=== PATIENT | male | born 1965 | race Caucasian/White ===

== ENCOUNTER 2024-11-17 20:46 | Inpatient (IN) | payer OTHER ==
[~2024-11-17] VITALS: Ht 180.3 cm; Wt 102.7 kg
[2024-11-17 21:29] LABS: Basophils # (auto) 0.1 10 ^3/uL (0-0.2); Eosinophils # (auto) 0 10 ^3/uL (0-0.8); Hemoglobin 9.2 g/dL (13.5-17.5); Mean Corpuscular Volume 63.4 fL (80.0-100.0); Monocytes # (auto) 1.4 10 ^3/uL (0-1.3)
[2024-11-17 21:30] LABS: Basophils % (auto) 0.6 % (0.0-2.0); Eosinophils % (auto) 0.1 % (0.0-7.0); Hematocrit 29.8 % (41.0-53.0); Mean Corpuscular Hemoglobin 19.5 pg (28.0-32.0); Mean Corpuscular Hgb Conc. 30.7 g/dL (32.0-36.0); Monocytes % (auto) 10.5 % (0.0-12.0); Neutrophils # (auto) 10.5 10 ^3/uL (1.6-8.6); Neutrophils % (auto) 80.8 % (37.0-80.0); Platelet Count (auto) 425 10^3/uL (140-450)
[2024-11-17 21:32] LABS: Red Cell Distribution Width 24.9 % (11.8-14.3)
[2024-11-17 21:46] LABS: Alanine Aminotransferase 9 U/L (7-40); Albumin 4.1 g/dL (3.2-4.8); Alkaline Phosphatase 83 U/L (46-116); Anion Gap 9 (5-15); Aspartate Aminotransferase 16 U/L (13-40); BUN/Creatinine Ratio 21.2 (10.0-20.0); Bilirubin, Total 1.1 mg/dL (0.2-1.0); Blood Urea Nitrogen 44 mg/dL (9-23); Calcium 9.1 mg/dL (8.7-10.4); Carbon Dioxide 25 mmol/L (20-31); Chloride 100 mmol/L (98-107); Glucose 117 mg/dL (74-106); Lipase 28 U/L (12-53); Potassium 3.4 mmol/L (3.5-5.1); Sodium 134 mmol/L (136-145); Total Protein 7.3 g/dL (5.7-8.2)
--- NOTE | 2024-11-17 21:53 | ED.PDOC ---
GI ASSESSMENT HPI Comments 59 year old male presents to the ED with a chief complaint of abdominal pain onset 1 day. PMHx HTN, DM, Diverticulitis. Patient states he was diagnosed with Diverticulitis May 2024, has an appointment for colonoscopy on 11/25/24. He began experiencing RLQ for the past day, experienced a few episodes of nausea/vomiting 2 days ago, now resolved. Denies chest pain, shortness of breath, dizziness, headache, hematemesis, blood in stool, fevers, chills. No other symptoms or modifying factors present at this time. Time Seen by MD: 21:30 Primary Care Provider: jordyn Reviewed Notes: Medications, Allergies Allergies: Coded Allergies: NO KNOWN ALLERGIES (Unverified , 08/26/15) Information Source: Patient Mode of Arrival: Ambulatory Timing: Days Duration: Since onset Prehospital treatment: None Quality: Sharp Vomitus: None Severity: Moderate Recent: None Recent Hx of: None Pain Location: RLQ Modifying Factors: Nothing Associated sign and symptoms: Nausea, Vomiting, Abdominal Pain Past Medical History PAST MEDICAL HISTORY: DM, HTN Past Medical History (Other): diverticulitis Surgical History: Denies all surgeries Family History Family History: Unknown Social History Smoker: Non-Smoker Alcohol: Denies ETOH Use Drugs: Denies Drug Use Lives In: Home Constitutional: denies: chills, diaphoresis, fatigue, fever, malaise, sweats, weakness, others EENTM: denies: blurred vision, double vision, ear bleeding, ear discharge, ear drainage, ear pain, ear ringing, eye pain, eye redness, hearing loss, mouth pain, mouth swelling, nasal discharge, nose bleeding, nose congestion, nose pain, photophobia, tearing, throat pain, throat swelling, voice changes, others Respiratory: denies: cough, hemoptysis, orthopnea, SOB at rest, shortness of breath, SOB with excertion, stridor, wheezing, others Cardiovascular: denies: chest pain, dizzy spells, diaphoresis, Dyspnea on exertion, edema, irregular heart beat, left arm pain, lightheadedness, palpitations, PND, syncope, others Gastrointestinal: reports: abdominal pain; denies: abdomen distended, blood streaked bowels, constipated, diarrhea, dysphagia, difficulty swallowing, hematemesis, melena, nausea, poor appetite, poor fluid intake, rectal bleeding, rectal pain, vomiting, others Genitourinary: denies: burning, dysuria, flank pain, frequency, hematuria, incontinence, penile discharge, penile sore, pain, testicle pain, testicle swelling, urgency, others Neurological: denies: dizziness, fainting, headache, left sided numbness, left sided weakness, numbness, paresthesia, pre-existing deficit, right sided numbness, right sided weakness, seizure, speech problems, tingling, tremors, w eakness, others Musculoskeletal: denies: back pain, gout, joint pain, joint swelling, muscle pain, muscle stiffness, neck pain, others Integumetry: denies: bruises, change in color, change in hair/nails, dryness, laceration, lesions, lumps, rash, wounds, others Allergic/Immunocompromised: denies: Difficulty Healing, Frequent Infections, Hives, Itching, others Hematologic/Lymphatic: denies: anemia, blood clots, easy bleeding, easy bruising, swollen glands, others Endocrine: denies: excessive hunger, excessive sweating, excessive thirst, excessive urination, flushing, intolerance to cold, intolerance to heat, unexplained weight gain, unexplained weight loss, others Psychiatric: denies: anxiety, bipolar disorder, depression, hopeless, panic disorder, schizophrenia, sleepless, suicidal, others All Other Systems: Reviewed and Negative Physical Exam General Appearance: No Apparent Distress, Normal HEENT: Normal ENT Inspection, Pharynx Normal, TMs Normal Neck: Full Range of Motion, Non-Tender, Normal, Normal Inspection Respiratory: Chest Non-Tender, Lungs Clear, No Accessory Muscle Use, No Respiratory Distress, Normal Breath Sounds Cardiovascular: No Edema, No JVD, No Murmur, No Gallop, Normal Peripheral Pulses, Regular Rate/Rhythm Breast Exam: Deferred Gastrointestinal: No Organomegaly Genitalia: Deferred Pelvic: Deferred Rectal: Deferred Extremities: No calf tenderness, Normal capillary refill, Normal inspection, Normal range of motion, Non-tender, No pedal edema Musculoskeletal : Apperance: Normal Neurologic: Alert, transfer professor II-XII nml as Tested, No Motor Deficits, Normal Affect, Normal Mood, No Sensory Deficits Cerebellar Function: Normal Reflexes: Normal Skin: Dry, Normal Color, Warm Lymphatic: No Adenopathy Was a procedure done? Was a procedure done?: No GI differential Dx Differential Diagnosis: AAA, Appendicitis, Aortic dissection, Cholangitis, Cholecystitis, Diverticular disease, Gastritis/PUD, Gastroenteritis, GI h emorrhage, Ischemic Bowel, Other X-Ray, Labs, Meds, VS Vital Signs Date Time Temp Pulse Resp B/P (MAP) Pulse Ox O2 Delivery O2 Flow Rate FiO2 11/17/24 22:15 98.5 95 16 119/57 (77) 74 98.5 Lab Test 11/17/24 22:20 11/17/24 21:16 Range/Units Urine Color Light-yellow Yellow Urine Clarity Clear Clear Urine pH 5.5 5.0-9.0 Urine Specific Vincent 1.018 1.001-1.035 Urine Protein Trace H Negative Urine Ketones Negative Negative Urine Blood Trace H Negative /uL Urine Nitrite Negative Negative Urine Bilirubin Negative Negative Urine Urobilinogen Normal Negative mg/dL Urine Leukocyte Esterase Negative Negative /uL Urine RBC <1 0 - 3 /hpf Urine Microscopic WBC 1 0-3 /HPF Urine Squamous Epithelial Cells None seen <5 /hpf Urine Bacteria None seen None Seen /hpf Urine Hyaline Casts Few 0 - 2 /lpf Urine Glucose Normal Normal mg/dL White Blood Count 13.0 H 4.4-10.8 10^3/uL Red Blood Count 4.70 4.5-5.90 10^6/uL Hemoglobin 9.2 L 13.5-17.5 g/dL Hematocrit 29.8 L 41.0-53.0 % Mean Corpuscular Volume 63.4 L 80.0-100.0 fL Mean Corpuscular Hemoglobin 19.5 L 28.0-32.0 pg Mean Corpuscular Hemoglobin Concent 30.7 L 32.0-36.0 g/dL Red Cell Distribution Width 24.9 H 11.8-14.3 % Platelet Count 425 140-450 10^3/uL Mean Platelet Volume 8.3 6.9-10.8 fL Neutrophils (%) (Auto) 80.8 H 37.0-80.0 % Lymphocytes (%) (Auto) 8.0 L 10.0-50.0 % Monocytes (%) (Auto) 10.5 0.0-12.0 % Eosinophils (%) (Auto) 0.1 0.0-7.0 % Basophils (%) (Auto) 0.6 0.0-2.0 % Neutrophils # (Auto) 10.5 H 1.6-8.6 10 ^3/uL Lymphocytes # (Auto) 1.0 0.4-5.4 10 ^3/uL Monocytes # (Auto) 1.4 H 0-1.3 10 ^3/uL Eosinophils # (Auto) 0 0-0.8 10 ^3/uL Basophils # (Auto) 0.1 0-0.2 10 ^3/uL Nucleated Red Blood Cells 0.0 % Platelet Estimate Adequate Hypochromasia (manual) Marked Anisocytosis (manual) Moderate Microcytosis Marked Ovalocytes Few Sodium Level 134 L 136-145 mmol/L Potassium Level 3.4 L 3.5-5.1 mmol/L Chloride Level 100 98-107 mmol/L Carbon Dioxide Level 25 20-31 mmol/L Anion Gap 9 5-15 Blood Urea Nitrogen 44 H 9-23 mg/dL Creatinine 2.08 H 0.700-1.30 mg/dL Glomerular Filtration Rate Calc 36 >90 mL/min BUN/Creatinine Ratio 21.2 H 10.0-20.0 Serum Glucose 117 H 74-106 mg/dL Calcium Level 9.1 8.7-10.4 mg/dL Total Bilirubin 1.1 H 0.2-1.0 mg/dL Aspartate Amino Transferase (AST) 16 13-40 U/L Alanine Aminotransferase (ALT) 9 7-40 U/L Alkaline Phosphatase 83 46-116 U/L Total Protein 7.3 5.7-8.2 g/dL Albumin 4.1 3.2-4.8 g/dL Lipase 28 12-53 U/L Time of 1ST Reevaluation: 22:00 Reevaluation 1ST: Unchanged Patient Education/Counseling: Diagnosis, Treatment, Prognosis Family Education/Counseling: No Family Present Departure 1 Departure Time of Disposition: 00:03 Impression: Primary Impression: Acute appendicitis Additional Impression: Acute renal injury Disposition: 01 HOME / SELF CARE / HOMELESS Condition: Stable Comments Right Lower Quadrant Abdominal Pain - Acute Appendicitis Chief Complaint: Right lower quadrant abdominal pain History of Present Illness: 59-year-old male presents with right lower quadrant abdominal pain for the past two days. Patient has relevant medical history of hypertension, diabetes, and prior diverticulitis. The pain is accompanied by tenderness in the right lower quadrant on examination. Laboratory studies reveal leukocytosis with left shift and evidence of acute kidney injury. Imaging confirms findings consistent with acute appendicitis. Review of Systems: Limited review of systems due to acute presentation. 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 Hypertension 2. Diabetes 3. Diverticulitis Physical Exam: Abdomen: Tenderness noted in right lower quadrant Lab Results: WBC: 13,000 with 81% neutrophils (left shift) Hemoglobin: 9.2 Hematocrit: 29.8 Sodium: 134 (borderline low) Potassium: 3.4 (borderline low) Creatinine: 2.08 (elevated) BUN: 44 (elevated) Urinalysis: Unremarkable Imaging and Other Relevant Results: CT Abdomen/Pelvis: - Dilated appendix measuring 1.7 cm with surrounding inflammation - Adjacent fat stranding - Wall thickening of ileum suggesting enteritis - Mesenteric lymph nodes in right lower quadrant Medical Decision Making: Summary Statement: 59-year-old male with history of hypertension, diabetes, and diverticulitis presenting with right lower quadrant pain, found to have acute appendicitis and acute kidney injury. Problem List: 1. Acute Appendicitis 2. Acute Kidney Injury 3. Anemia 4. Electrolyte Abnormalities Differential Diagnosis: 1. Acute Appendicitis 2. Diverticulitis 3. Mesenteric Adenitis 4. Ileitis 5. Inflammatory Bowel Disease ED Course: Patient received IV fluids, IV antibiotics, and Toradol for pain management. Given imaging findings consistent with appendicitis and laboratory abnormalities, decision made to admit for surgical evaluation and management of acute kidney injury. Assessment and Plan: 1. Acute Appendicitis: - Admit to hospital for surgical evaluation - Continue IV antibiotics - NPO status 2. Acute Kidney Injury: - Continue IV fluid hydration - Monitor urine output - Serial creatinine measurements 3. Electrolyte Abnormalities: - Monitor and replace electrolytes as needed 4. Anemia: - Monitor hemoglobin - Further workup during admission Billing Information: ICD-10: K35.80 - Unspecified acute appendicitis ICD-10: N17.9 - Acute kidney failure, unspecified ICD-10: D64.9 - Anemia, unspecified ICD-10: E87.8 - Other disorders of electrolyte and fluid balance Critical Care Note Critical Care Time?: Yes (35 min-critical care time only) Critical care comment: Total critical care time: Approximately 36 minutes Due to a high probability of clinically significant, life threatening deterioration, the patient required my highest level of preparedness to intervene emergently and I personally spent this critical care time directly and personally managing the patient. This critical care time included obtaining a history; examining the patient; pulse oximetry; ordering and review of studies; arranging urgent treatment with development of a management plan; evaluation of patient's response to treatment; frequent reassessment; and, discussions with other providers. This critical care time was performed to assess and manage the high probability of imminent, life-threatening deterioration that could result in multi-organ failure. It was exclusive of separately billable procedures and treating other patients. Stability Stability form required: No I personally scribed for CELENA MIRELES MD ([email or web address]) on 11/17/24 at 21:53. Electronically submitted by Nedra Reyes ([email or web address]). CELENA MIRELES MD Nov 17, 2024 21:53
[2024-11-17] MEDS: SODIUM CHLORIDE 0.9% 1,000 ML IVB ONE (22:00)
[2024-11-17] MEDS: KETOROLAC TROMETH 30 MG/ML 1ML VIAL IV ONE (22:00)
[2024-11-17 22:25] LABS: Urine Bacteria None Seen /hpf (None Seen)
[2024-11-17 22:28] LABS: Anisocytosis Moderate; Hypochromia Marked; Platelet Estimate Adequate
[2024-11-17 22:29] LABS: Ovalocytes FEW
[2024-11-17 22:30] LABS: Urine Blood TRACE /uL (Negative); Urine Clarity Clear (Clear); Urine Color Light-Yellow (Yellow); Urine Hyaline Cast FEW /lpf (0 - 2); Urine Protein, UAD TRACE (Negative); Urine Specific Gravity 1.018 (1.001-1.035); Urine Squamous Epithelial Cell None Seen /hpf (<5); Urine Urobilinogen Normal (Negative); Urine WBC 1 /HPF (0-3); Urine pH 5.5 (5.0-9.0)
--- NOTE | 2024-11-17 23:44 | DVH ---
Exam: CT CT AB PEL WO CON-NO ORAL OR IV History: RLQ PAIN Comparison Study: None Technique: Multidetector spiral CT of the abdomen was performed from lung bases to pubic symphysis. Imaging was performed without IV contrast. Axial, coronal and sagittal multiplanar reformats were ob tained from the axial data set by the technologist. Radiation Dose : 1. Abdomen/Pelvis: CTDIvol 18.3 mGy, DLP 1044 mGy*cm. Findings: Evaluation of solid organs is limited due to lack of intravenous contrast use. Lung Bases: Chronic scarring is seen in the left lower lobe No acute or significant lung base finding . Normal heart size. No pleural or pericardial effusion. Liver: The liver is normal in size. No focal lesions. Gallbladder and Biliary Tree: Unremarkable Spleen: Unremarkable Pancreas: The pancreas is grossly normal in appearance. Adrenal Glands: Unremarkable Kidneys: Kidneys are grossly normal without calculi or hydronephrosis. Bladder: Grossly unremarkable for degree of distention. Bowel: The stomach is grossly normal in appearance. Concentric wall thickening of the ileum is sugge stive of infectious/inflammatory enteritis. Abnormally dilated appendix measuring up to 1.7 cm in di ameter with adjacent fat stranding, suspicious for acute appendicitis. Scattered colonic diverticulos is without evidence of diverticulitis. Ascites: Absent Lymphadenopathy: Multiple large mesenteric lymph nodes are seen in the right lower quadrant, the larg est measuring up to 3 cm in length. Abdominal Wall and Mesentery: Unremarkable. Vasculature: The visualized abdominal aorta is normal in size and caliber. Evaluation of abdominal a nd pelvic vessels is limited due to lack of intravenous contrast. Pelvic Organs: Unremarkable Musculoskeletal: No aggressive focal bony lesions, acute fractures or dislocation. IMPRESSION: 1. Abnormally dilated appendix measuring up to 1.7 cm in diameter with adjacent fat stranding, suspic ious for acute appendicitis. 2. Concentric wall thickening of the ileum is suggestive of infectious/inflammatory enteritis. 3. Multiple large mesenteric lymph nodes are seen in the right lower quadrant, the largest measuring up to 3 cm in length. Radiation optimization: All CT scans at this facility use at least one of these dose optimization liss hniques: automated exposure control mA and/or kV adjustment per patient size (includes targeted exam s where dose is matched to clinical indication) or iterative reconstruction.
[2024-11-18] VITALS (20 sets, daily range): BP systolic 100–129; BP diastolic 50–69; PULSE 67–87; RESP 14–24; TEMP 97.9–99.3; O2SAT 93–97
[2024-11-18] MEDS ORDERED: ONDANSETRON HCL 4 MG/2 ML VIAL IV PRN ×2 (00:45→14:30)
[2024-11-18] MEDS: PIPERACILLIN-TAZOB 3.375GM 100 ML IV ONE (02:21)
[2024-11-18] MEDS: ONDANSETRON HCL 4 MG/2 ML VIAL IV ONE ×2 (02:22→17:00)
[2024-11-18] MEDS: POTASSIUM CHL 20MEQ/100ML 100 ML IV SCH (03:05)
--- NOTE | 2024-11-18 05:11 | DVHHPRES ---
History of Present Illness Resident Creating Document: JHAJNELL McmanusMARIEL RESIDENT History of Present Illness Patient is a 59-year-old male with a past medical history of hypertension, dyslipidemia presented to the ER with a chief complaint of right lower quadrant abdominal pain that started yesterday. He reports that last year in February he had left lower quadrant pain following which she went to his PCP who prescribed antibiotics and told him it was likely diverticulitis, he took antibiotics for about 2 weeks and the pain improved slightly but he has continued to have discomfort in the left lower quadrant on and off sometimes worsened with certain foods like chicken and meat. About 2 months ago he sta rted to have pain in the hypogastric region which was also on and off and he did not pay much attention. Patient reports all through this his bowel movements were regular and denied any constipation. Since the last 1 week patient was having discomfort in the right lower quadrant but yesterday it was very severe that yet to come to the hospital for further evaluation. He reported having 3-4 episode of loose watery greenish stools in the last 2 days, episode of vomiting on Friday but denied any blood in the vomitus or in the stool. Off note patient also reports that since 2015 up to 2023 he was taking ibuprofen daily twice and stop taking when he had pain in the epigastrium and symptoms of dyspepsia like currently satiety last year and he went to his PCP. Patient denies any other complaint of chest pain or shortness of breath. He denies any fever or chills. Past medical history: Prediabetic, hypertension, dyslipidemia Past surgical history: Left lung lobectomy apparently due to pneumonia in 2011 Social history: Patient is occasional cannabis user oral cannabis, denies smoking and alcohol and any other drug use Home medications: Metformin, metoprolol 50 b.i.d., losartan 100 mg, hydrochlorothiazide 25 mg, atorvastatin 20 mg Review of Systems Review of Systems Seen and examined at the bedside Reports of right lower quadrant pain Denies nausea, vomiting, fever or chills Allergies: Coded Allergies: NO KNOWN ALLERGIES (Unverified , 08/26/15) Medications Current Medications Medications Dose Ordered Sig/[place] Route Start Time Stop Time Status Last Admin Dose Admin Piperacillin Sod/ Tazobactam Sod 100 ml @ 25 mls/hr Q8HR IV 11/18/24 06:00 Ondansetron HCl 4 mg Q6HPRN PRN IV 6/5/25 00:45 Exam Vital Signs Vital Signs Date Time Temp Pulse Resp B/P (MAP) Pulse Ox O2 Delivery O2 Flow Rate FiO2 11/18/24 03:18 98.1 78 18 123/78 (93) 96 98.1 11/18/24 03:18 Nasal Cannula* 1 24 Exam Gen - no pallor, no icterus, no cyanosis, no clubbing, no LAD, no edema . Skin - Patients skin is warm and dry. HEENT - normocephalic, atraumatic, moist mucous membranes. Neck - full ROM, no LAD, no JVD Pulmonary - B/L equal breath sounds, no crackles, no wheezing, no stridor. cardiovascular - regular S1,S2 heard, no added sounds, no murmurs heard. peripheral pulses normal radial 2+, pedal 2+. capillary refill normal <2 secs. GI - soft abdomen with tenderness to palpation in the right lower quadrant, positive tenderness at McBurney's point. no hepatospleenomegaly. Bowel sounds hypoactive Neurological - Patient is A/O X 3 . Bilateral upper extremity strength 5/5, bilateral lower extremity strength 5/5, no facial droop, normal speech, no tremor, no sensory deficiets. Labs/Xrays Labs Test 11/17/24 22:20 11/17/24 21:16 Range/Units Urine Color Light-yellow Yellow Urine Clarity Clear Clear Urine pH 5.5 5.0-9.0 Urine Specific Manning 1.018 1.001-1.035 Urine Protein Trace H Negative Urine Ketones Negative Negative Urine Blood Trace H Negative /uL Urine Nitrite Negative Negative Urine Bilirubin Negative Negative Urine Urobilinogen Normal Negative mg/dL Urine Leukocyte Esterase Negative Negative /uL Urine RBC <1 0 - 3 /hpf Urine Microscopic WBC 1 0-3 /HPF Urine Squamous Epithelial Cells None seen <5 /hpf Urine Bacteria None seen None Seen /hpf Urine Hyaline Casts Few 0 - 2 /lpf Urine Glucose Normal Normal mg/dL White Blood Count 13.0 H 4.4-10.8 10^3/uL Red Blood Count 4.70 4.5-5.90 10^6/uL Hemoglobin 9.2 L 13.5-17.5 g/dL Hematocrit 29.8 L 41.0-53.0 % Mean Corpuscular Volume 63.4 L 80.0-100.0 fL Mean Corpuscular Hemoglobin 19.5 L 28.0-32.0 pg Mean Corpuscular Hemoglobin Concent 30.7 L 32.0-36.0 g/dL Red Cell Distribution Width 24.9 H 11.8-14.3 % Platelet Count 425 140-450 10^3/uL Mean Platelet Volume 8.3 6.9-10.8 fL Neutrophils (%) (Auto) 80.8 H 37.0-80.0 % Lymphocytes (%) (Auto) 8.0 L 10.0-50.0 % Monocytes (%) (Auto) 10.5 0.0-12.0 % Eosinophils (%) (Auto) 0.1 0.0-7.0 % Basophils (%) (Auto) 0.6 0.0-2.0 % Neutrophils # (Auto) 10.5 H 1.6-8.6 10 ^3/uL Lymphocytes # (Auto) 1.0 0.4-5.4 10 ^3/uL Monocytes # (Auto) 1.4 H 0-1.3 10 ^3/uL Eosinophils # (Auto) 0 0-0.8 10 ^3/uL Basophils # (Auto) 0.1 0-0.2 10 ^3/uL Nucleated Red Blood Cells 0.0 % Platelet Estimate Adequate Hypochromasia (manual) Marked Anisocytosis (manual) Moderate Microcytosis Marked Ovalocytes Few Reticulocyte Count (auto) 1.22 0.5-1.5 % Sodium Level 134 L 136-145 mmol/L Potassium Level 3.4 L 3.5-5.1 mmol/L Chloride Level 100 98-107 mmol/L Carbon Dioxide Level 25 20-31 mmol/L Anion Gap 9 5-15 Blood Urea Nitrogen 44 H 9-23 mg/dL Creatinine 2.08 H 0.700-1.30 mg/dL Glomerular Filtration Rate Calc 36 >90 mL/min BUN/Creatinine Ratio 21.2 H 10.0-20.0 Serum Glucose 117 H 74-106 mg/dL Calcium Level 9.1 8.7-10.4 mg/dL Ferritin 15.7 L 22-322 ng/mL Total Bilirubin 1.1 H 0.2-1.0 mg/dL Aspartate Amino Transferase (AST) 16 13-40 U/L Alanine Aminotransferase (ALT) 9 7-40 U/L Alkaline Phosphatase 83 46-116 U/L Lactate Dehydrogenase 154 120-246 U/L C-Reactive Protein High Sensitivity 15.39 H <1.0 mg/dL Total Protein 7.3 5.7-8.2 g/dL Albumin 4.1 3.2-4.8 g/dL Lipase 28 12-53 U/L Assessment/Plan Assessment/Plan Acute intractable abdominal pain Probable acute appendicitis likely non perforated infectious/inflammatory enteritis SIRS likely due to above Possible acute gastritis - CT abdomen pelvis without contrast shows abnormally dilated appendix measuring about 1.7 cm in diameter with a adjacent fat stranding, concentric wall thickening of ileum, multiple large mesenteric lymph nodes in the RLQ - IV Zosyn - IV fluids - surgical consult - IV Protonix - patient NPO Microcytic hypochromic anemia likely due to iron-deficiency - retic count normal - ferritin low - iron panel pending YULI on CKD likely due to be VMN - IV fluids - Moderate electrolytes and kidney function PUD prophylaxis: Protonix Goals of care discussed with the patient for over 27 minutes. Full code Time spent: 39 minutes Plan discussed with Dr. Villa Plan discussed with: Patient My Orders Orders - RUY NOEL RESIDENT Procedure Category Date Status Time Admit ADMIT 11/18/24 Transmitted 00:39 Oxygen By Nasal RT 11/18/24 Transmitted Cannula 00:39 Stat Ekg For Chest LUIS 11/18/24 In Process Pain 00:39 Piperacillin-Tazob PHA 11/18/24 In Process 3.375gm (Zosyn 3.375g 06:00 Npo (Nothing By DIET 11/18/24 Transmitted Mouth) Diet Breakfast * Surgical Consult CONS 11/18/24 Transmitted D5w/Sod Chl 0.45% PHA 11/18/24 In Process (D5w 1/2ns) 00:45 Ondansetron Hcl PHA 11/18/24 In Process (Zofran) 00:45 Electrocardigram EKG 11/18/24 Logged 00:45 Stool Occult Blood LAB 11/18/24 Logged 00:45 Complete Blood Count LAB 11/18/24 Logged 04:00 Comprehensive LAB 11/18/24 Logged Metabolic Panel 04:00 Iron Panel LAB 11/18/24 Logged 04:00 Transfer Orders XFER 11/18/24 Transmitted 04:04 Pantoprazole PHA 11/18/24 Logged (Protonix) 05:00 Pantoprazole PHA 11/19/24 Logged (Protonix) 10:00 PTPTT LAB 11/18/24 Verified 04:52 Date of Service: Nov 18, 2024 Billing Provider: KRUNAL VILLA MD Common Visit Codes: [id number] INP/OBS CARE (HIGH) Secondary Visit Codes: [id number] CARE PLAN 30 MINUTES RUY NOEL RESIDENT Nov 18, 2024 05:11
[2024-11-18] MEDS: PIPERACILLIN-TAZOB 3.375GM 100 ML IV SCH ×2 (05:35→12:00)
[2024-11-18] MEDS: PANTOPRAZOLE 40 MG/10 ML VIAL INJ IV ONE (05:35)
[2024-11-18] MEDS: D5W/SOD CHL 0.45% 1,000 ML IV ONE (05:36)
[2024-11-18 07:24] LABS: Basophils # (auto) 0 10 ^3/uL (0-0.2); Eosinophils # (auto) 0 10 ^3/uL (0-0.8); Eosinophils % (auto) 0.1 % (0.0-7.0); Hemoglobin 8.1 g/dL (13.5-17.5); Neutrophils # (auto) 8.1 10 ^3/uL (1.6-8.6)
[2024-11-18 07:25] LABS: Basophils % (auto) 0.3 % (0.0-2.0); Hematocrit 25.9 % (41.0-53.0); Lymphocytes % (auto) 9.5 % (10.0-50.0); Mean Corpuscular Hemoglobin 19.8 pg (28.0-32.0); Mean Corpuscular Hgb Conc. 31.2 g/dL (32.0-36.0); Mean Corpuscular Volume 63.4 fL (80.0-100.0); Monocytes % (auto) 9.6 % (0.0-12.0); Neutrophils % (auto) 80.5 % (37.0-80.0); Platelet Count (auto) 328 10^3/uL (140-450); Red Blood Cells 4.09 10^6/uL (4.5-5.90); Red Cell Distribution Width 24.7 % (11.8-14.3)
[2024-11-18 07:37] LABS: Alanine Aminotransferase 10 U/L (7-40); Albumin 3.6 g/dL (3.2-4.8); Alkaline Phosphatase 77 U/L (46-116); Anion Gap 8 (5-15); BUN/Creatinine Ratio 23.8 (10.0-20.0); Calcium 8.9 mg/dL (8.7-10.4); Carbon Dioxide 25 mmol/L (20-31); Chloride 103 mmol/L (98-107); Glucose 97 mg/dL (74-106); Magnesium 1.7 mg/dL (1.6-2.6); Sodium 136 mmol/L (136-145); Total Protein 6.4 g/dL (5.7-8.2)
[2024-11-18 07:40] LABS: INR 1.17 (0.9-1.15); Partial Thromboplastin Time 31.6 SEC (24.5-34.5); Prothrombin Time 12.2 sec (9.3-11.8)
[2024-11-18] MEDS ORDERED: D5W/SOD CHLO 0.9% 1,000 ML IV SCH (07:45)
[2024-11-18 07:49] LABS: Aspartate Aminotransferase 12 U/L (13-40); Blood Urea Nitrogen 41 mg/dL (9-23); Potassium 3.5 mmol/L (3.5-5.1)
[2024-11-18 08:17] LABS: Sodium Urine 50 mmol/L (40-220)
[2024-11-18 08:23] LABS: Protein, Urine 63.1 mg/dL (1-14)
[2024-11-18 08:25] LABS: Cannabinoid Screen, Urine Pos (NEGATIVE); Urine Protein/Creatinine Ratio 0.38
[2024-11-18 08:26] LABS: Amphetamine Screen, Urine Neg (NEGATIVE); Barbiturate Scree,Urine Neg (NEGATIVE); Benzodiazephine Screen, Urine Neg (NEGATIVE); Cocaine Screen, Urine Neg (NEGATIVE); Opiate Scree,Urine Neg (NEGATIVE); Phencyclidine Screen, Urine Neg (NEGATIVE)
--- NOTE | 2024-11-18 09:44 | DVHINCON2 ---
Consultation - Surgical Date Seen: Nov 18, 2024 Referring Physician Reason for Consultation abd pain History of Present Illness History of Present Illness 59M who presented w RLQ abd pain. He states he had LLQ abd pain for 1-2mo and has seen his pcp and was told he had mild diverticulitis and was given ABX. The pain never fully resolved but over the last 48hrs he noticed the pain to be in the RLW now. 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 He has never had a colonoscopy prior and no hx of abd surgery. Past Medical/Surgical History Past Medical/Surgical History diverticulitis no abd surgery hx, remote lung wedge resection 2/2 empyema Family and Social History Family and Social History no etoh tob or drugs family noncontributiry Allergies and medications Allergies: Coded Allergies: NO KNOWN ALLERGIES (Unverified , 08/26/15) Review of systems Review of Systems: HEENT:Normal, CVS:Normal, RESPIRATORY:Normal, GI:Abnormal (abd pain), :Normal, MSK:Normal, NEURO:Normal Examination Vital signs Vital Signs Date Time Temp Pulse Resp B/P (MAP) Pulse Ox O2 Delivery O2 Flow Rate FiO2 11/18/24 08:00 95 Room Air* 0 21 11/18/24 05:00 99.3 77 18 129/69 (89) 99.3 Medications Current Medications Medications (Trade) Dose Ordered Sig/[place] Route PRN Reason Start Time Stop Time Status Last Admin Piperacillin Sod/ Tazobactam Sod 100 ml @ 25 mls/hr Q8HR IV 11/18/24 06:00 11/18/24 07:45 DC 11/18/24 05:35 Potassium Chloride 100 ml @ 50 mls/hr Q2H IV 11/18/24 00:45 11/18/24 04:44 DC 11/18/24 03:05 Ondansetron HCl (Zofran) 4 mg Q6HPRN PRN IV NAUSEA / VOMITING 11/18/24 00:45 Pantoprazole Sodium (Protonix) 40 mg DAILY IV 11/19/24 10:00 Piperacillin Sod/ Tazobactam Sod 100 ml @ 25 mls/hr Q6HR IV 11/18/24 12:00 Dextrose/Sodium Chloride 1,000 ml @ 100 mls/hr Q10H IV 11/18/24 07:45 Laboratory Labs Test 11/18/24 06:58 11/17/24 22:20 11/17/24 21:16 Range/Units White Blood Count 10.0 4.4-10.8 10^3/uL Red Blood Count 4.09 L 4.5-5.90 10^6/uL Hemoglobin 8.1 L 13.5-17.5 g/dL Hematocrit 25.9 #L 41.0-53.0 % Mean Corpuscular Volume 63.4 L 80.0-100.0 fL Mean Corpuscular Hemoglobin 19.8 L 28.0-32.0 pg Mean Corpuscular Hemoglobin Concent 31.2 L 32.0-36.0 g/dL Red Cell Distribution Width 24.7 H 11.8-14.3 % Platelet Count 328 140-450 10^3/uL Mean Platelet Volume 8.3 6.9-10.8 fL Neutrophils (%) (Auto) 80.5 H 37.0-80.0 % Lymphocytes (%) (Auto) 9.5 L 10.0-50.0 % Monocytes (%) (Auto) 9.6 0.0-12.0 % Eosinophils (%) (Auto) 0.1 0.0-7.0 % Basophils (%) (Auto) 0.3 0.0-2.0 % Neutrophils # (Auto) 8.1 1.6-8.6 10 ^3/uL Lymphocytes # (Auto) 1.0 0.4-5.4 10 ^3/uL Monocytes # (Auto) 1.0 0-1.3 10 ^3/uL Eosinophils # (Auto) 0 0-0.8 10 ^3/uL Basophils # (Auto) 0 0-0.2 10 ^3/uL Nucleated Red Blood Cells 0.0 % Prothrombin Time 12.2 H 9.3-11.8 sec Prothrombin Time INR 1.17 H 0.9-1.15 Activated Partial Thromboplast Time 31.6 24.5-34.5 SEC Sodium Level 136 136-145 mmol/L Potassium Level 3.5 3.5-5.1 mmol/L Chloride Level 103 98-107 mmol/L Carbon Dioxide Level 25 20-31 mmol/L Anion Gap 8 5-15 Blood Urea Nitrogen 41 H 9-23 mg/dL Creatinine 1.72 H 0.700-1.30 mg/dL Glomerular Filtration Rate Calc 46 >90 mL/min BUN/Creatinine Ratio 23.8 H 10.0-20.0 Serum Glucose 97 74-106 mg/dL Lactic Acid Level 0.6 0.4-2.0 mmol/L Calcium Level 8.9 8.7-10.4 mg/dL Magnesium Level 1.7 1.6-2.6 mg/dL Total Bilirubin 1.0 0.2-1.0 mg/dL Aspartate Amino Transferase (AST) 12 L 13-40 U/L Alanine Aminotransferase (ALT) 10 7-40 U/L Alkaline Phosphatase 77 46-116 U/L Total Protein 6.4 5.7-8.2 g/dL Albumin 3.6 3.2-4.8 g/dL Vitamin B12 Level 1021 H 211-911 pg/mL Thyroid Stimulating Hormone (TSH) 1.10 0.55-4.78 uIU/mL Urine Color Light-yellow Yellow Urine Clarity Clear Clear Urine pH 5.5 5.0-9.0 Urine Specific [place] 1.018 1.001-1.035 Urine Protein Trace H Negative Urine Ketones Negative Negative Urine Blood Trace H Negative /uL Urine Nitrite Negative Negative Urine Bilirubin Negative Negative Urine Urobilinogen Normal Negative mg/dL Urine Leukocyte Esterase Negative Negative /uL Urine RBC <1 0 - 3 /hpf Urine Microscopic WBC 1 0-3 /HPF Urine Squamous Epithelial Cells None seen <5 /hpf Urine Bacteria None seen None Seen /hpf Urine Hyaline Casts Few 0 - 2 /lpf Urine Creatinine 166.10 H 30.0-125.0 mg/dL Urine Protein/Creatinine Ratio 0.38 Urine Sodium 50 40-220 mmol/L Urine Glucose Normal Normal mg/dL Urine Total Protein 63.1 H 1-14 mg/dL Urine Opiates Screen Neg NEGATIVE Urine Fentanyl Screen Neg NEGATIVE Urine Barbiturates Screen Neg NEGATIVE Urine Phencyclidine Screen Neg NEGATIVE Urine Amphetamines Screen Neg NEGATIVE Urine Benzodiazepines Screen Neg NEGATIVE Urine Cocaine Screen Neg NEGATIVE Urine Cannabinoids Screen Pos NEGATIVE Platelet Estimate Adequate Hypochromasia (manual) Marked Anisocytosis (manual) Moderate Microcytosis Marked Ovalocytes Few Reticulocyte Count (auto) 1.22 0.5-1.5 % Ferritin 15.7 L 22-322 ng/mL Lactate Dehydrogenase 154 120-246 U/L C-Reactive Protein High Sensitivity 15.39 H <1.0 mg/dL Lipase 28 12-53 U/L Examination: GENERAL:Normal (nad, wd/wn), HEENT:Normal (anicteric, eomi), NECK:Normal (supple. trach midline), LUNGS:Normal (unlabored, ctab), CVS:Normal (rrr, +pulses equal bl), ABDOMEN:Abnormal (soft, nd, lower abd ttp), MSK:Normal (atraumatic, full rom), SKIN:Normal (c/d/i, warm and well perfused), NEURO:Normal (grossly intact, a&o) Problem List/Assessment/Plan Problems: (1) Anemia (2) Acute appendicitis (3) Acute renal injury Assessment and Plan 59m who reports a 2mo h/o LLQW abd pain that has now migrated to the RLQ x48hrs leukocytosis, RLQ abd tenderness CT shows dilated appendix w periappendiceal inflammatory changes c/w acute appendicitis acute appendicitis anemia of unknown origin YULI OR for lap appy, possible open ABX will need an outpt screening colonoscopy at some point following resolution of acute illness due to anemia and recent significant weight loss, as well as per recommended screening guidelines Plan discussed with Plan discussed with: Patient Visit Coding Surgery Date of Service if different f: Nov 18, 2024 Billing Provider: ISIS SANCHEZ MD Surgery Visit Codes: 29141 - INP CONSULT <55 MIN ISIS SANCHEZ MD Nov 18, 2024 09:44
--- NOTE | 2024-11-18 10:03 | DVHPNRES ---
Progress Note Date Seen: Nov 18, 2024 Resident Creating Document: NEDA ESPARZA RESIDENT Medical Necessity Reason Pt with a Central, PICC or Fol: No Subjective Review of Systems Patient is a 59-year-old male with a past medical history of hypertension, dyslipidemia presented to the ER with a chief complaint of right lower quadrant abdominal pain that started yesterday. He reports that last year in February he had left lower quadrant pain following which she went to his PCP who prescribed antibiotics and told him it was likely diverticulitis, he took antibiotics for about 2 weeks and the pain improved slightly but he has continued to have discomfort in the left lower quadrant on and off sometimes worsened with certain foods like chicken and meat. About 2 months ago he started to have pain in the hypogastric region which was also on and off and he did not pay much attention. Patient reports all through this his bowel movements were regular and denied any constipation. Since the last 1 week patient was having discomfort in the right lower quadrant but yesterday it was very severe that yet to come to the hospital for further evaluation. He reported having 3-4 episode of loose watery greenish stools in the last 2 days, episode of vomiting on Friday but denied any blood in the vomitus or in the stool. Off note patient also reports that since 2015 up to 2023 he was taking ibuprofen daily twice and stop taking when he had pain in the epigastrium and symptoms of dyspepsia like currently satiety last year and he went to his PCP. Patient denies any other complaint of chest pain or shortness of breath. He denies any fever or chills. Past medical history: Prediabetic, hypertension, dyslipidemia Past surgical history: Left lung lobectomy apparently due to pneumonia in 2011 Social history: Patient is occasional cannabis user oral cannabis, denies smoking and alcohol and any other drug use Home medications: Metformin, metoprolol 50 b.i.d., losartan 100 mg, hydrochlorothiazide 25 mg, atorvastatin 20 mg Patient seen and examined at bedside. Zosyn changed to q.6 hour. IV fluids changed to 0.9 NS with the d5w Objective vital signs Vital Sign Date Time Temp Pulse Resp B/P (MAP) Pulse Ox O2 Delivery O2 Flow Rate FiO2 11/18/24 08:00 95 Room Air* 0 21 11/18/24 05:00 99.3 77 18 129/69 (89) 99.3 Total Intake and Output 11/17/24 11/17/24 11/18/24 15:00 23:00 07:00 Intake Total 100 ml Balance 100 ml medications Current Medications Medications Dose Ordered Sig/[place] Route Start Time Stop Time Status Last Admin Dose Admin Ondansetron HCl 4 mg Q6HPRN PRN IV 11/18/24 00:45 Pantoprazole Sodium 40 mg DAILY IV 11/19/24 10:00 Piperacillin Sod/ Tazobactam Sod 100 ml @ 25 mls/hr Q6HR IV 11/18/24 12:00 Dextrose/Sodium Chloride 1,000 ml @ 100 mls/hr Q10H IV 11/18/24 07:45 Examination Gen - no pallor, no icterus, no cyanosis, no clubbing, no LAD, no edema . Skin - Patients skin is warm and dry. HEENT - normocephalic, atraumatic, moist mucous membranes. Neck - full ROM, no LAD, no JVD Pulmonary - B/L equal breath sounds, no crackles, no wheezing, no stridor. cardiovascular - regular S1,S2 heard, no added sounds, no murmurs heard. peripheral pulses normal radial 2+, pedal 2+. capillary refill normal <2 secs. GI - soft abdomen with tenderness to palpation in the right lower quadrant, positive tenderness at McBurney's point. no hepatospleenomegaly. Bowel sounds hypoactive Neurological - Patient is A/O X 3 . Bilateral upper extremity strength 5/5, bilateral lower extremity strength 5/5, no facial droop, normal speech, no tremor, no sensory deficiets. laboratory and microbiology Laboratory Tests 11/18/24 06:58 Test 11/18/24 06:58 Range/Units Serum Glucose 97 74-106 mg/dL Labs and/or images reviewed: Labs reviewed by me, Image(s) reviewed by me Problem List/Assessment/Plan Problem List/Assessment/Plan Acute intractable abdominal pain Probable acute appendicitis likely non perforated infectious/inflammatory enteritis SIRS likely due to above Possible acute gastritis - CT abdomen pelvis without contrast shows abnormally dilated appendix measuring about 1.7 cm in diameter with a adjacent fat stranding, concentric wall thickening of ileum, multiple large mesenteric lymph nodes in the RLQ - IV Zosyn q.6 hour starting 11/17 - IV NS with D5W at 100 cc/hr - surgical consult - undergpoing appendectomy 11/18 - IV Protonix - patient NPO - advised regarding avoiding NSAIDs ibuprofen -ordered a school occult blood -never had a colonoscopy/EGD Microcytic hypochromic anemia likely due to iron-deficiency - retic count normal - ferritin low - iron panel pending YULI on CKD likely due to be VMN- FENA 0.5, perirenal - continue IV fluids - Moderate electrolytes and kidney function - creatinine downtrending to 1.7 PUD prophylaxis: Protonix Plan discussed with patient in which all questions have been answered Goals of care discussed with the the patient for more than 20 minutes, full code status Case discussed with Dr. Boone Plan discussed with: Patient My Orders My Orders Orders - NEDA ESPARZA Procedure Category Date Status Time Vitamin D, 25-Hydroxy LAB 11/18/24 In Process 07:00 Hemoglobin A1c LAB 11/18/24 In Process 07:00 Type And Screen BBK 11/18/24 In Process 07:00 Piperacillin-Tazob PHA 11/18/24 In Process 3.375gm (Zosyn 3.375g 12:00 D5w/Sod Chlo 0.9% PHA 11/18/24 In Process (D5w Ns 0.9%) 07:45 Date of Service: Nov 18, 2024 Billing Provider: ANDREW BARRETT MD Common Visit Codes: [id number] INP/OBS CARE(HIGH) NEDA ESPARZA Nov 18, 2024 10:03 ANDREW BARRETT MD Nov 29, 2024 09:23
--- NOTE | 2024-11-18 11:07 | ECG ---
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
--- NOTE | 2024-11-18 11:09 | DVH ---
EXAM: XY CHEST XRAY 1 VIEW Indication: Pain Technique: Single frontal view of the chest was obtained Comparison: None FINDINGS: Lines and Tubes: None Lungs: No focal consolidation. Pleura: No effusion. No pneumothorax. Cardiomediastinal contours: Cardiomegaly. Bones: No acute osseous abnormality. IMPRESSION: Cardiomegaly. No acute cardiopulmonary disease.
[2024-11-18] MEDS ORDERED: HYDROmorphone HCL 2 MG/ML VL/or syr ONE (11:43)
[2024-11-18] MEDS ORDERED: DexAMETHasone SOD PHOS 10MG/1ML VIAL INJ ONE (11:44)
[2024-11-18] MEDS ORDERED: ONDANSETRON HCL 4 MG/2 ML VIAL ONE (11:44)
[2024-11-18] MEDS ORDERED: ePHEDrine SULFATE 50 MG/ML AMP ONE (11:45)
[2024-11-18] MEDS: BUPIVACAINE 0.5% P/F INJ 10 ML VIAL ONE (12:37)
[2024-11-18] MEDS: LIDOCAINE W/ EPINEPHRINE 1% 20ML VIAL ONE (12:38)
[2024-11-18] MEDS ORDERED: SUGAMMADEX 200mg/2ml Vial (100MG/ML) IV ONE (14:31)
--- NOTE | 2024-11-18 14:50 | DVH ---
Date: 11/18/2024 02:05 PM Examination: XY KUB ABDOMEN SINGLE VIEW History: SUPPLY COUNT Comparison: None TECHNIQUE: Frontal views of the abdomen was obtained. FINDINGS: Nonobstructive bowel gas pattern. Nasogastric tube tip stomach. RIGHT Lower quadrant elida drain. No radiopaque foreign bodies are IMPRESSION: Nonobstructive bowel gas pattern. Nasogastric tube tip stomach. RIGHT Lower quadrant elida drain. No radiopaque foreign bodies are
[2024-11-18] MEDS ORDERED: HYDROmorphone HCL 2 MG/ML VL/or syr IV PRN (15:00)
[2024-11-18] MEDS ORDERED: ACETAMINOPHEN IV 1000 MG/100ML (10MG/ML) IV PRN (15:00)
--- NOTE | 2024-11-18 15:13 | DVHOP ---
DATE OF SURGERY: 11/18/2024 PREOPERATIVE DIAGNOSES: * Appendicitis. * Abdominal pain POSTOPERATIVE DIAGNOSES: * Right colon tumor with peritoneal implants. * Omental caking. SURGEON: Jarred Matthews MD CERTIFIED INDUSTRIAL HYGIENIST: Dr. Pedro. SECOND CERTIFIED INDUSTRIAL HYGIENIST: Floyd Mota NP ANESTHESIA: General endotracheal. ANESTHESIOLOGIST: Dr. Mahoney. PROCEDURES: * Laparoscopy converted to laparotomy. * Lysis of adhesions. * Right hemicolectomy. * Distal ileum to transverse colon anastomosis. DESCRIPTION OF PROCEDURE: Under general endotracheal anesthesia with the patient's abdomen prepped and draped, abdomen was entered through a supraumbilical incision by means of a VisiPort 5-mm trocar. The site was then used for insertion of a 5-mm scope and an additional 5-mm port in the subxiphoid skin was inserted under direct vision. Laparoscopy revealed dense adhesions and the right colon firmly adherent to the lateral posterior peritoneum. The operation was converted to an open operation. A midline laparotomy incision was accomplished. There were adhesions between the bowel wall and sigmoid colon. These were lysed sharply. A segment of the abdominal wall was left attached to the colon in order to accomplish full mobilization and facilitate the incision. Following the accomplishment of the midline incision, the abdomen was visually and manually explored. Cultures and sensitivities were submitted of the fluid encountered. The right colon was densely adherent to the abdominal wall and the posterior peritoneum. It was mobilized by incision along the avascular planes with careful preservation and protection of the duodenum. The right colon was mobilized into the field. It contained a fist-sized tumor. The tissues also contained a loop of small bowel adherent to the tumor. Appendix was in situ. Distal ileum was transected with a stapler in the ascending colon, similarly transected. There were numerous peritoneal implants. The omentum was caked with a tumor. An omentectomy was accomplished and the tumor was submitted for histopathologic examination. The implants were submitted for histopathologic examination. The segment of the right colon, distal ileum, and appendix were submitted for histopathologic examination. The abdomen was then profusely irrigated. Irrigant was aspirated. Hemostasis was meticulously accomplished. The distal ileum was mobilized and brought to opposition to the transverse colon. The bowel was occluded with bowel clamps and a hand-sewn anastomosis jcyl-no-avoh was accomplished between the distal ileum and the transverse colon using 3-0 Prolene for the outer layer and 3-0 Monocryl for the inner layer. The anastomosis being accomplished was inspected for watertight closure, which was accomplished by milking the bowel contents. No evidence of extravasation was encountered. The mesentery was approximated using 2-0 Monocryl sutures. The abdomen was again irrigated. Irrigant was aspirated and two Trip-Beauchamp drains were placed into the peritoneal cavity and exteriorized with separate stable incisions and secured with 2-0 nylon sutures. Subsequently, following an accurate needle and sponge counts reported by the nurses x2. The abdomen was closed using #1 double-stranded PDS suture and Metallic skin vinny. The patient remained hemodynamically stable throughout the procedure and left the operating room extubated with stable vital signs with a plan to transfer the patient to direct observation unit. The patient's was thoroughly informed in person of the findings. I explained to the that most likely we are dealing with metastatic cancer, awaiting the confirmation by the pathologist. MD JOSE Watts/SUKUMAR TID: [id number] RECEIPT: [id number]
[2024-11-18] MEDS: D5W/SOD CHL 0.45%/KCL 20MEQ 1,000 ML IV SCH (16:49)
[2024-11-18] MEDS: IRON SUCROSE COMPLEX 110 ML IV ONE (17:00)
[2024-11-18] MEDS: POVIDONE IODINE 10 % TOPICAL OINT 30GM TOP ONE (17:00)
[2024-11-18] MEDS: metroNIDAZOLE 500MG/100ML 100 ML IV ONE (17:00)
[2024-11-18] MEDS: ceFAZolin 2 GM/D5W50ml 50 ML IV ONE (17:00)
[2024-11-18] MEDS: KETOROLAC TROMETH 30 MG/ML 1ML VIAL IV ONE (17:00)
[2024-11-18 19:17] LABS: Hematocrit 29.7 % (41.0-53.0); Hemoglobin 9.1 g/dL (13.5-17.5); Mean Corpuscular Hemoglobin 19.7 pg (28.0-32.0); Mean Corpuscular Hgb Conc. 30.5 g/dL (32.0-36.0); Mean Corpuscular Volume 64.7 fL (80.0-100.0); Platelet Count (auto) 349 10^3/uL (140-450); Red Blood Cells 4.59 10^6/uL (4.5-5.90); White Blood Cell 11.4 10^3/uL (4.4-10.8)
[2024-11-18 19:34] LABS: Red Cell Distribution Width 24.9 % (11.8-14.3)
[2024-11-18 19:35] LABS: Basophils % (manual) 0 (0.0-2.0); Blast Cells 0; Eosinophils % (manual) 0 (0-7); Metamyelocytes % 0; Myelocytes % 0; Promyelocytes % 0; Reactive Lymphocytes 0
[2024-11-18 19:45] LABS: Alkaline Phosphatase 71 U/L (46-116); Anion Gap 11 (5-15); Aspartate Aminotransferase 18 U/L (13-40); BUN/Creatinine Ratio 21.7 (10.0-20.0); Carbon Dioxide 22 mmol/L (20-31); Chloride 102 mmol/L (98-107); Total Protein 6.2 g/dL (5.7-8.2)
[2024-11-18 19:46] LABS: Albumin 3.4 g/dL (3.2-4.8); Bilirubin, Total 0.6 mg/dL (0.2-1.0)
[2024-11-18 19:49] LABS: Alanine Aminotransferase 9 U/L (7-40); Blood Urea Nitrogen 36 mg/dL (9-23); Calcium 8.4 mg/dL (8.7-10.4); Glucose 185 mg/dL (74-106); Sodium 135 mmol/L (136-145)
[2024-11-18] MEDS: HYDROmorphone HCL 2 MG/ML VL/or syr IV PRN (19:55)
[2024-11-18 20:29] LABS: Band Neutrophils % (manual) 12; Lymphocytes % (manual) 2 (10.0-50.0); Monocytes % (manual) 4 (0-12); Platelet Estimate Adequate
[2024-11-18 20:30] LABS: Anisocytosis Moderate
[2024-11-18 20:31] LABS: Hypochromia Marked
[2024-11-18] MEDS: ceFAZolin 2 GM/D5W50ml 50 ML IV SCH (21:10)
[2024-11-18] MEDS: metroNIDAZOLE 500MG/100ML 100 ML IV SCH (22:45)
[2024-11-19] VITALS (41 sets, daily range): BP systolic 96–144; BP diastolic 48–102; PULSE 68–110; RESP 15–27; TEMP 97.8–99; O2SAT 91–97
[2024-11-19 05:07] LABS: Basophils # (auto) 0 10 ^3/uL (0-0.2); Eosinophils # (auto) 0 10 ^3/uL (0-0.8); Hemoglobin 8.9 g/dL (13.5-17.5); Lymphocytes # (auto) 0.3 10 ^3/uL (0.4-5.4); Monocytes # (auto) 0.7 10 ^3/uL (0-1.3); White Blood Cell 10.6 10^3/uL (4.4-10.8)
[2024-11-19 05:11] LABS: Hematocrit 28.6 % (41.0-53.0); Lymphocytes % (auto) 2.5 % (10.0-50.0); Mean Corpuscular Hemoglobin 20.2 pg (28.0-32.0); Mean Corpuscular Hgb Conc. 31.1 g/dL (32.0-36.0); Mean Corpuscular Volume 64.9 fL (80.0-100.0); Monocytes % (auto) 6.5 % (0.0-12.0); Neutrophils # (auto) 9.7 10 ^3/uL (1.6-8.6); Platelet Count (auto) 311 10^3/uL (140-450); Red Blood Cells 4.41 10^6/uL (4.5-5.90); Red Cell Distribution Width 24.8 % (11.8-14.3)
[2024-11-19 05:25] LABS: Alanine Aminotransferase 12 U/L (7-40); Albumin 3.4 g/dL (3.2-4.8); Alkaline Phosphatase 74 U/L (46-116); Anion Gap 8 (5-15); Aspartate Aminotransferase 14 U/L (13-40); BUN/Creatinine Ratio 21.1 (10.0-20.0); Carbon Dioxide 25 mmol/L (20-31); Chloride 103 mmol/L (98-107); Magnesium 1.8 mg/dL (1.6-2.6); Total Protein 6.2 g/dL (5.7-8.2)
[2024-11-19 05:26] LABS: Bilirubin, Total 0.4 mg/dL (0.2-1.0)
[2024-11-19 05:32] LABS: Blood Urea Nitrogen 30 mg/dL (9-23); Glucose 242 mg/dL (74-106); Sodium 136 mmol/L (136-145)
[2024-11-19] MEDS: HYDROmorphone HCL 2 MG/ML VL/or syr IV ONE (05:39)
--- NOTE | 2024-11-19 08:50 | DVHPN2 ---
Subjective Date Seen: Nov 19, 2024 Post op day Post op day: 1 Patient reports: No new complaints Nursing reports: No new complaints General: Normal HNT: Normal Cardiovascular: Normal Respiratory: Normal Gastrointestinal: Normal Genitourinary: Normal Musculoskeletal: Normal Neurological: Normal Objective Vitals Vital Sign Date Time Temp Pulse Resp B/P (MAP) Pulse Ox O2 Delivery O2 Flow Rate FiO2 11/19/24 08:00 99.0 73 19 106/54 (71) 95 99.0 11/19/24 07:51 Nasal Cannula* 3 32 Total Intake and Output 11/18/24 11/18/24 11/19/24 15:00 23:00 07:00 Intake Total 100 ml 890 ml 1210 ml Output Total 150 ml 565 ml 1100 ml Balance -50 ml 325 ml 110 ml Medications Current Medications Medications Dose Ordered Sig/[place] Route Start Time Stop Time Status Last Admin Dose Admin Potassium Chloride/Dextrose/ Sod Cl 1,000 ml @ 120 mls/hr Q8H20M IV 11/18/24 14:30 11/19/24 01:06 120 MLS/HR Cefazolin Sodium/ Dextrose 50 ml @ 50 mls/hr Q8H IV 11/18/24 21:00 11/19/24 04:31 50 MLS/HR Metronidazole 100 ml @ 100 mls/hr Q8HR IV 11/18/24 22:00 11/19/24 05:37 100 MLS/HR Pantoprazole Sodium 40 mg DAILY IV 11/19/24 10:00 Ondansetron HCl 4 mg Q4HPRN PRN IV 11/18/24 14:30 Hydromorphone HCl 2 mg Q3HPRN PRN IV 11/18/24 19:45 11/18/24 19:55 2 MG Hydromorphone HCl 0.5 mg Q2HPRN PRN IV 11/19/24 08:45 UNV General: Normal, Obese Head/Eyes: Normal ENT: Normal Neck: Normal Lungs: Normal Cardiovascular: Normal Abdominal: Soft, Other (NICOLLE drain ) Musculoskeletal: Normal Extremities: Normal Skin: Normal Neurological: Normal Labs and Microbiology Laboratory Tests 11/19/24 04:40 Test 11/19/24 04:40 Range/Units Serum Glucose 242 H 74-106 mg/dL Ass/Plan Labs and/or images reviewed: Labs reviewed by me, Image(s) reviewed by me Problem List Acute intractable abdominal pain Probable acute appendicitis likely non perforated infectious/inflammatory enteritis SIRS likely due to above Possible acute gastritis - CT abdomen pelvis without contrast shows abnormally dilated appendix measuring about 1.7 cm in diameter with a adjacent fat stranding, concentric wall thickening of ileum, multiple large mesenteric lymph nodes in the RLQ - IV Zosyn q.6 hour starting 11/17 - IV NS with D5W at 100 cc/hr - surgical consult - undergpoing appendectomy 11/18 - IV Protonix - patient NPO - advised regarding avoiding NSAIDs ibuprofen -ordered a school occult blood -never had a colonoscopy/EGD Microcytic hypochromic anemia likely due to iron-deficiency - retic count normal - ferritin low - iron panel pending YULI on CKD likely due to be VMN- FENA 0.5, perirenal - continue IV fluids - Moderate electrolytes and kidney function - creatinine downtrending to 1.7 PUD prophylaxis: Protonix Plan discussed with patient in which all questions have been answered Goals of care discussed with the the patient for more than 20 minutes, full code status Case discussed with Dr. Boone Problems(with codes): (1) Acute appendicitis Assessment/Plan s/p colon resection , appendectomy wound clean dry and intact abdomen soft, non distended, appropriately tender labs reviewed NICOLLE Drain serous sanguinous minimal fluid Plan: NPO NGT to LCS patient to ambulate Plan discussed with patient, Dr. Matthews Visit Coding Surgery Date of Service if different f: Nov 19, 2024 Billing Provider: FATIMAH MATTHEWS MD Surgery Visit Codes: [id number] INP/OBS CARE(HIGH) CLEMENTE NGUYEN LITHOGRAPHIC PLATE MAKER APPRENTICE Nov 19, 2024 08:50
[2024-11-19] MEDS: PANTOPRAZOLE 40 MG/10 ML VIAL INJ IV SCH (09:24)
[2024-11-19] MEDS: HYDROmorphone HCL 2 MG/ML VL/or syr IV PRN (09:24)
[2024-11-19] MEDS ORDERED: PANTOPRAZOLE 40 MG/10 ML VIAL INJ IV SCH (10:00)
[2024-11-19] MEDS ORDERED: DEXTROSE (50%) 50ML SYRG IV PRN (17:15)
--- NOTE | 2024-11-19 19:01 | DVH ---
EXAM: XR Chest, 1 View CLINICAL INDICATION: NGT placement TECHNIQUE: Frontal view of the chest. COMPARISON: XY CHEST XRAY 1 VIEW on DOS: 11/18/24 FINDINGS: LUNGS AND PLEURAL SPACES: Unremarkable. No consolidation. No pneumothorax. HEART: Unremarkable. No cardiomegaly. MEDIASTINUM: Unremarkable. Normal mediastinal contour. BONES/JOINTS: Unremarkable. No acute fracture. TUBES, LINES AND DEVICES: Enteric tube is in the stomach. OTHER FINDINGS: . IMPRESSION: Enteric tube is in the stomach.
--- NOTE | 2024-11-19 19:46 | DVHPNRES ---
Progress Note Date Seen: Nov 19, 2024 Resident Creating Document: NEDA ESPARZA RESIDENT Medical Necessity Reason Pt with a Central, PICC or Fol: No Subjective Review of Systems Patient is a 59-year-old male with a past medical history of hypertension, dyslipidemia presented to the ER with a chief complaint of right lower quadrant abdominal pain that started yesterday. He reports that last year in February he had left lower quadrant pain following which she went to his PCP who prescribed antibiotics and told him it was likely diverticulitis, he took antibiotics for about 2 weeks and the pain improved slightly but he has continued to have discomfort in the left lower quadrant on and off sometimes worsened with certain foods like chicken and meat. About 2 months ago he started to have pain in the hypogastric region which was also on and off and he did not pay much attention. Patient reports all through this his bowel movements were regular and denied any constipation. Since the last 1 week patient was having discomfort in the right lower quadrant but yesterday it was very severe that yet to come to the hospital for further evaluation. He reported having 3-4 episode of loose watery greenish stools in the last 2 days, episode of vomiting on Friday but denied any blood in the vomitus or in the stool. Off note patient also reports that since 2015 up to 2023 he was taking ibuprofen daily twice and stop taking when he had pain in the epigastrium and symptoms of dyspepsia like currently satiety last year and he went to his PCP. Patient denies any other complaint of chest pain or shortness of breath. He denies any fever or chills. Past medical history: Prediabetic, hypertension, dyslipidemia Past surgical history: Left lung lobectomy apparently due to pneumonia in 2011 Social history: Patient is occasional cannabis user oral cannabis, denies smoking and alcohol and any other drug use Home medications: Metformin, metoprolol 50 b.i.d., losartan 100 mg, hydrochlorothiazide 25 mg, atorvastatin 20 mg 11/18 - Patient seen and examined at bedside. Zosyn changed to q.6 hour. IV fluids changed to 0.9 NS with the d5w. 11/19-patient seen and examined in the ICU. Family at bedside. Patient is A&O x3. Requiring 3 L NC supplementation. Sutures dry clean and intact. Drain with serosanguineous discharge. Hypoactive bowel sounds. Objective vital signs Vital Sign Date Time Temp Pulse Resp B/P (MAP) Pulse Ox O2 Delivery O2 Flow Rate FiO2 11/19/24 17:32 109 20 94 Nasal Cannula* 2 28 11/19/24 17:32 98.8 131/102 (112) 98.8 Total Intake and Output 11/18/24 11/18/24 11/19/24 15:00 23:00 07:00 Intake Total 100 ml 890 ml 1210 ml Output Total 150 ml 565 ml 1100 ml Balance -50 ml 325 ml 110 ml medications Current Medications Medications Dose Ordered Sig/[place] Route Start Time Stop Time Status Last Admin Dose Admin Potassium Chloride/Dextrose/ Sod Cl 1,000 ml @ 120 mls/hr Q8H20M IV 11/18/24 14:30 11/19/24 17:46 120 MLS/HR Cefazolin Sodium/ Dextrose 50 ml @ 50 mls/hr Q8H IV 11/18/24 21:00 11/19/24 13:36 50 MLS/HR Metronidazole 100 ml @ 100 mls/hr Q8HR IV 11/18/24 22:00 11/19/24 14:53 100 MLS/HR Pantoprazole Sodium 40 mg DAILY IV 11/19/24 10:00 11/19/24 09:24 40 MG Ondansetron HCl 4 mg Q4HPRN PRN IV 11/18/24 14:30 Hydromorphone HCl 2 mg Q3HPRN PRN IV 11/18/24 19:45 11/18/24 19:55 2 MG Hydromorphone HCl 0.5 mg Q2HPRN PRN IV 11/19/24 08:45 11/19/24 16:40 0.5 MG Diagnostic Test (Pha) 1 strip ACHS 11/19/24 22:00 Insulin Human Regular ACHS SC 11/19/24 22:00 Dextrose 50 ml UD PRN IV 11/19/24 17:15 Examination Patient lying in bed, in no acute distress General: Obese, afebrile, palor, mucosae are moist Cardiovascular: Regular S1 and S2. No murmurs, gallops or rubs. No JVD elevation. No pedal edema Respiratory: Decreased bilateral air entry, requiring NC supplementation at 3 L Abdomen: Soft, tender, nondistended, hypoactive/absent bowel sounds, no rebound tenderness, no organomegaly, no masses. Suture dry clean intact, serosanguineous drainage noted in NICOLLE. Abdominal binder in place Genitourinary: Deferred MSK/skin: Mobilizes 4 limbs. Skin is dry and warm Neurological: No motor, no sensitive deficits, normal speech. Pupils are isocoric and reactive. Psych/Mental Status: A/Ox3 laboratory and microbiology Laboratory Tests 11/19/24 04:40 Test 11/19/24 04:40 Range/Units Serum Glucose 242 H 74-106 mg/dL Microbiology Date/Time Source Procedure Growth Status 11/18/24 12:21 Abdomen Gram Stain Pending Resulted 11/18/24 12:21 Abdomen Anaerobic Culture - Preliminary Resulted 11/18/24 12:21 Abdomen Aerobic Culture - Preliminary Resulted Labs and/or images reviewed: Labs reviewed by me, Image(s) reviewed by me Problem List/Assessment/Plan Problem List/Assessment/Plan 11/18- patient underwent laparoscopic appendectomy converted to laparotomy and lysis of adhesions colon right hemicolectomy: Distal ileum to transverse colon anastomosis with the removal of fist sized tumor. Numerous Peritoneal implants were seen. The omentum was caked with a tumor. An omentectomy was accomplished and the tumor was submitted for histopathologic examination. The implants were submitted for histopathologic examination. The segment of the right colon, distal ileum, and appendix were submitted for histopathologic examination. Acute intractable abdominal pain Probable metastatic adenocarcinoma-newly diagnosed-status post resection 11/18 infectious/inflammatory enteritis SIRS likely due to above - CT abdomen pelvis without contrast shows abnormally dilated appendix measuring about 1.7 cm in diameter with a adjacent fat stranding, concentric wall thickening of ileum, multiple large mesenteric lymph nodes in the RLQ -CT chest/abdomen/pelvis with IV contrast pending, probable will be scheduled on 11/21 if creatinine keeps trending down -discontinued IV Zosyn q.6 hour starting 11/17, started cefazolin IV Q 8 hour - IV half NS with D5W at 120 cc/hr -surgery on board - IV Protonix - patient NPO with NGT to LIS - advised regarding avoiding NSAIDs ibuprofen -never had a colonoscopy/EGD -hematology/oncology consultation: Dr. Maza we will set up outpatient follow up in her clinic. Microcytic hypochromic anemia likely due to iron-deficiency - retic count normal - ferritin low - iron panel shows low iron, low% saturation, normal TIBC YULI on CKD likely due to be VMN- FENA 0.5, perirenal - continue IV fluids - Moderate electrolytes and kidney function - creatinine downtrending to 1.42 PUD prophylaxis: Protonix Lovenox 40 mg sc daily Plan discussed with patient in which all questions have been answered Goals of care discussed with the the patient for more than 20 minutes, full code status Case discussed with Dr. Boone Plan discussed with: Patient, Spouse My Orders My Orders Orders - NEDA ESPARZA Procedure Category Date Status Time * Hematology/Oncology CONS 11/19/24 Transmitted Consult 14:43 Afp Serum Tumor Marker LAB 11/19/24 In Process 14:50 Ca 125 (Serial) LAB 11/19/24 In Process 14:50 Pt Request For Service PT 11/19/24 Logged 17:01 Glucose Blood PHA 11/19/24 In Process (Accu-Chek Comfort 22:00 Insulin R (Human) PHA 11/19/24 In Process (Insulin R) 22:00 Dextrose 50% Syringe PHA 11/19/24 In Process 17:15 Date of Service: Nov 19, 2024 Billing Provider: ANDREW BARRETT MD Common Visit Codes: [id number] INP/OBS CARE(HIGH) NEDA ESPARZA Nov 19, 2024 19:46 ANDREW BARRETT MD Nov 29, 2024 09:28
[2024-11-19] MEDS: InsuLIN REG 1unit/0.01ml Soln (100units/ml) SC SCH (21:57)
[2024-11-19] MEDS: ACCU-CHEK COMFORT CURVE STRIP VI SCH (22:00)
[2024-11-20] VITALS (10 sets, daily range): BP systolic 123–145; BP diastolic 65–82; PULSE 73–111; RESP 16–18; TEMP 97.7–98.7; O2SAT 95–98
[2024-11-20 06:23] LABS: Basophils # (auto) 0 10 ^3/uL (0-0.2); Eosinophils # (auto) 0 10 ^3/uL (0-0.8); Hemoglobin 8.1 g/dL (13.5-17.5); Lymphocytes # (auto) 0.8 10 ^3/uL (0.4-5.4); Lymphocytes % (auto) 7.7 % (10.0-50.0); Mean Corpuscular Volume 63.9 fL (80.0-100.0); Red Cell Distribution Width 24.9 % (11.8-14.3); White Blood Cell 10.1 10^3/uL (4.4-10.8)
[2024-11-20 06:24] LABS: Basophils % (auto) 0.2 % (0.0-2.0); Hematocrit 25.9 % (41.0-53.0); Mean Corpuscular Hemoglobin 19.9 pg (28.0-32.0); Mean Corpuscular Hgb Conc. 31.2 g/dL (32.0-36.0); Monocytes % (auto) 9.7 % (0.0-12.0); Neutrophils # (auto) 8.3 10 ^3/uL (1.6-8.6); Neutrophils % (auto) 82.4 % (37.0-80.0); Platelet Count (auto) 311 10^3/uL (140-450); Red Blood Cells 4.05 10^6/uL (4.5-5.90)
[2024-11-20 06:44] LABS: Alanine Aminotransferase < 9 U/L (7-40); Alkaline Phosphatase 81 U/L (46-116); Anion Gap 6 (5-15); BUN/Creatinine Ratio 19.2 (10.0-20.0); Blood Urea Nitrogen 19 mg/dL (9-23); Calcium 8.9 mg/dL (8.7-10.4); Carbon Dioxide 26 mmol/L (20-31); Chloride 107 mmol/L (98-107); Glucose 130 mg/dL (74-106); Magnesium 1.7 mg/dL (1.6-2.6); Sodium 139 mmol/L (136-145); Total Protein 5.9 g/dL (5.7-8.2)
[2024-11-20 06:45] LABS: Albumin 3.3 g/dL (3.2-4.8); Aspartate Aminotransferase 12 U/L (13-40)
[2024-11-20 06:49] LABS: Bilirubin, Total 0.3 mg/dL (0.2-1.0)
[2024-11-20 08:07] LABS: AFP Serum Tumor Marker <1.8 ng/mL (0.0-8.4)
[2024-11-20] MEDS: ENOXAPARIN SOD 40 MG/0.4 ML SYRINGE SC SCH (09:35)
--- NOTE | 2024-11-20 09:55 | DVHPN2 ---
Subjective Date Seen: Nov 20, 2024 Post op day Post op day: 2 Patient reports: No new complaints Nursing reports: No new complaints General: Normal HNT: Normal Cardiovascular: Normal Respiratory: Normal Gastrointestinal: Abdominal Pain Genitourinary: Normal Musculoskeletal: Normal Neurological: Normal Objective Vitals Vital Sign Date Time Temp Pulse Resp B/P (MAP) Pulse Ox O2 Delivery O2 Flow Rate FiO2 11/20/24 08:50 98.7 83 18 128/79 (95) 96 98.7 11/19/24 20:00 Nasal Cannula* 2 28 Total Intake and Output 11/19/24 11/19/24 11/20/24 15:00 23:00 07:00 Intake Total 1010 ml 620 ml Output Total 915 ml 850 ml Balance 1010 ml -295 ml -850 ml Medications Current Medications Medications Dose Ordered Sig/[place] Route Start Time Stop Time Status Last Admin Dose Admin Potassium Chloride/Dextrose/ Sod Cl 1,000 ml @ 120 mls/hr Q8H20M IV 11/18/24 14:30 11/19/24 17:46 120 MLS/HR Cefazolin Sodium/ Dextrose 50 ml @ 50 mls/hr Q8H IV 11/18/24 21:00 11/20/24 05:00 50 MLS/HR Metronidazole 100 ml @ 100 mls/hr Q8HR IV 11/18/24 22:00 11/20/24 06:00 100 MLS/HR Pantoprazole Sodium 40 mg DAILY IV 11/19/24 10:00 11/20/24 09:35 40 MG Ondansetron HCl 4 mg Q4HPRN PRN IV 11/18/24 14:30 Hydromorphone HCl 2 mg Q3HPRN PRN IV 11/18/24 19:45 11/20/24 00:02 2 MG Hydromorphone HCl 0.5 mg Q2HPRN PRN IV 11/19/24 08:45 11/19/24 16:40 0.5 MG Diagnostic Test (Pha) 1 strip ACHS 11/19/24 22:00 11/20/24 07:00 1 STRIP Insulin Human Regular ACHS SC 11/19/24 22:00 11/20/24 06:40 2 UNITS Dextrose 50 ml UD PRN IV 11/19/24 17:15 Enoxaparin Sodium 40 mg DAILY SC 11/20/24 10:00 11/20/24 09:35 40 MG General: Normal, Obese Head/Eyes: Normal ENT: Normal Neck: Normal Lungs: Normal Cardiovascular: Normal Abdominal: Soft, Other (NICOLLE drain ) Musculoskeletal: Normal Extremities: Normal Skin: Normal Neurological: Normal Labs and Microbiology Laboratory Tests 11/20/24 05:55 Test 11/20/24 05:55 Range/Units Serum Glucose 130 #H 74-106 mg/dL Ass/Plan Labs and/or images reviewed: Labs reviewed by me, Image(s) reviewed by me Problem List 11/18- patient underwent laparoscopic appendectomy converted to laparotomy and lysis of adhesions colon right hemicolectomy: Distal ileum to transverse colon anastomosis with the removal of fist sized tumor. Numerous Peritoneal implants were seen. The omentum was caked with a tumor. An omentectomy was accomplished and the tumor was submitted for histopathologic examination. The implants were submitted for histopathologic examination. The segment of the right colon, distal ileum, and appendix were submitted for histopathologic examination. Acute intractable abdominal pain Probable metastatic adenocarcinoma-newly diagnosed-status post resection 11/18 infectious/inflammatory enteritis SIRS likely due to above - CT abdomen pelvis without contrast shows abnormally dilated appendix measuring about 1.7 cm in diameter with a adjacent fat stranding, concentric wall thickening of ileum, multiple large mesenteric lymph nodes in the RLQ -CT chest/abdomen/pelvis with IV contrast pending, probable will be scheduled on 11/21 if creatinine keeps trending down -discontinued IV Zosyn q.6 hour starting 11/17, started cefazolin IV Q 8 hour - IV half NS with D5W at 120 cc/hr -surgery on board - IV Protonix - patient NPO with NGT to LIS - advised regarding avoiding NSAIDs ibuprofen -never had a colonoscopy/EGD -hematology/oncology consultation: Dr. Maza we will set up outpatient follow up in her clinic. Microcytic hypochromic anemia likely due to iron-deficiency - retic count normal - ferritin low - iron panel shows low iron, low% saturation, normal TIBC YULI on CKD likely due to be VMN- FENA 0.5, perirenal - continue IV fluids - Moderate electrolytes and kidney function - creatinine downtrending to 1.42 PUD prophylaxis: Protonix Lovenox 40 mg sc daily Plan discussed with patient in which all questions have been answered Goals of care discussed with the the patient for more than 20 minutes, full code status Case discussed with Dr. Boone Assessment/Plan s/p colon resection , appendectomy wound clean dry and intact abdomen soft, non distended, appropriately tender labs reviewed NICOLLE Drain serous sanguinous minimal fluid Plan: NPO NGT to LCS patient to ambulate 11/20/2024 s/p colon resection , appendectomy wound vac over wound minimal drainage , no erythema seen abdomen soft , non distended, appropriately tender Plan: NGT to LCS NPO patient to ambulate Prognosis: Good Plan discussed with patient, Visit Coding Surgery Date of Service if different f: Nov 20, 2024 Billing Provider: FATIMAH ALVARADO MD Surgery Visit Codes: [id number] INP/OBS CARE(HIGH) CLEMENTE NGUYEN PROCESS SERVER Nov 20, 2024 09:55
--- NOTE | 2024-11-20 15:51 | DVHPNRES ---
Progress Note Date Seen: Nov 20, 2024 Resident Creating Document: AMRIK KINNEY RESIDENT Medical Necessity Reason Pt with a Central, PICC or Fol: No Subjective Review of Systems patient seen and examined. Hypoactive bowel sounds, not passing gas. PT on board. Objective vital signs Vital Sign Date Time Temp Pulse Resp B/P (MAP) Pulse Ox O2 Delivery O2 Flow Rate FiO2 11/20/24 12:47 98.1 111 18 145/82 (103) 95 98.1 11/20/24 08:00 Nasal Cannula* 2 28 Total Intake and Output 11/19/24 11/19/24 11/20/24 15:00 23:00 07:00 Intake Total 1010 ml 620 ml 150 ml Output Total 915 ml 850 ml Balance 1010 ml -295 ml -700 ml medications Current Medications Medications Dose Ordered Sig/[place] Route Start Time Stop Time Status Last Admin Dose Admin Potassium Chloride/Dextrose/ Sod Cl 1,000 ml @ 120 mls/hr Q8H20M IV 11/18/24 14:30 11/19/24 17:46 120 MLS/HR Cefazolin Sodium/ Dextrose 50 ml @ 50 mls/hr Q8H IV 11/18/24 21:00 11/20/24 12:44 50 MLS/HR Metronidazole 100 ml @ 100 mls/hr Q8HR IV 11/18/24 22:00 11/20/24 14:01 100 MLS/HR Pantoprazole Sodium 40 mg DAILY IV 11/19/24 10:00 11/20/24 09:35 40 MG Ondansetron HCl 4 mg Q4HPRN PRN IV 11/18/24 14:30 Hydromorphone HCl 2 mg Q3HPRN PRN IV 11/18/24 19:45 11/20/24 10:31 2 MG Hydromorphone HCl 0.5 mg Q2HPRN PRN IV 11/19/24 08:45 11/19/24 16:40 0.5 MG Diagnostic Test (Pha) 1 strip ACHS 11/19/24 22:00 11/20/24 11:59 1 STRIP Insulin Human Regular ACHS SC 11/19/24 22:00 11/20/24 11:59 2 UNITS Dextrose 50 ml UD PRN IV 11/19/24 17:15 Enoxaparin Sodium 40 mg DAILY SC 11/20/24 10:00 11/20/24 09:35 40 MG Examination General: Obese, afebrile, palor, mucosae are moist Cardiovascular: Regular S1 and S2. No murmurs, gallops or rubs. No JVD elevation. No pedal edema Respiratory: Decreased bilateral air entry, requiring NC supplementation at 2L Abdomen: Soft, tender, nondistended, hypoactive bowel sounds, no rebound tenderness, no organomegaly, no masses. Suture dry clean intact, serosanguineous drainage noted in NICOLLE. Abdominal binder in place Genitourinary: Deferred MSK/skin: Mobilizes 4 limbs. Skin is dry and warm Neurological: No motor, no sensitive deficits, normal speech. Pupils are isocoric and reactive. Psych/Mental Status: A/Ox3 laboratory and microbiology Laboratory Tests 11/20/24 05:55 Test 11/20/24 05:55 Range/Units Serum Glucose 130 #H 74-106 mg/dL Microbiology Date/Time Source Procedure Growth Status 11/18/24 22:57 Nose MRSA Screen - Final Complete Problem List/Assessment/Plan Problem List/Assessment/Plan Acute intractable abdominal pain Probable metastatic adenocarcinoma-newly diagnosed-status post resection 11/18 infectious/inflammatory enteritis SIRS likely due to above - CT abdomen pelvis without contrast shows abnormally dilated appendix measuring about 1.7 cm in diameter with a adjacent fat stranding, concentric wall thickening of ileum, multiple large mesenteric lymph nodes in the RLQ -CT chest/abdomen/pelvis with IV contrast pending -discontinued IV Zosyn q.6 hour starting 11/17, started cefazolin IV Q 8 hour. Abdominal culture growing E coli sensitive to cefazolin - IV half NS with D5W at 120 cc/hr -surgery on board - IV Protonix - patient NPO with NGT to LIS - advised regarding avoiding NSAIDs ibuprofen -never had a colonoscopy/EGD -hematology/oncology consultation: Dr. Maza we will set up outpatient follow up in her clinic. Microcytic hypochromic anemia likely due to iron-deficiency - retic count normal - ferritin low - iron panel shows low iron, low% saturation, normal TIBC YULI on CKD likely due to be VMN- FENA 0.5, perirenal - continue IV fluids - Moderate electrolytes and kidney function - creatinine downtrending to 1.42 PUD prophylaxis: Protonix Lovenox 40 mg sc daily Plan discussed with patient in which all questions have been answered Goals of care discussed with the the patient for 26 minutes, full code status Case discussed with Dr. Diego Plan discussed with: Patient Dietary Evaluation Review Recommendations by RD: Dietary education by RD Comments: 1) If patient remains NPO > 7 days, consider EN/TPN to meet at least 75% estimated energy needs 2) Advance to cardiac diet when medically feasible, pending EXAMINING OFFICER approval 3) Refer to outpatient RD for weight management 4) Follow-up with gastroenterology and oncology 5) Continue to monitor I&O, labs, and skin integrity Expected Outcomes/Goals: 1) patient to receive nutrition support within 7 days of NPO status 2) labs to improve 3) diet to advance 4) f/u in 2-3 days Date of Service: Nov 20, 2024 Billing Provider: CHARLES DIEGO MD Common Visit Codes: [id number] INP/OBS CARE(HIGH) AMRIK KINNEY RESIDENT Nov 20, 2024 15:50 CHARLES DIEGO MD Nov 20, 2024 22:15
[2024-11-21] VITALS (8 sets, daily range): BP systolic 138–166; BP diastolic 85–100; PULSE 91–111; RESP 18–20; TEMP 97.3–98.1; O2SAT 95–97
[2024-11-21 05:15] LABS: Basophils # (auto) 0 10 ^3/uL (0-0.2); Hemoglobin 8.2 g/dL (13.5-17.5); Mean Corpuscular Hemoglobin 19.6 pg (28.0-32.0); Monocytes # (auto) 0.8 10 ^3/uL (0-1.3); Neutrophils # (auto) 6.1 10 ^3/uL (1.6-8.6); Nucleated Red Blood Cells % 0.1 %
[2024-11-21 05:18] LABS: Basophils % (auto) 0.2 % (0.0-2.0); Eosinophils # (auto) 0 10 ^3/uL (0-0.8); Eosinophils % (auto) 0.6 % (0.0-7.0); Hematocrit 26.7 % (41.0-53.0); Lymphocytes # (auto) 0.9 10 ^3/uL (0.4-5.4); Lymphocytes % (auto) 11.4 % (10.0-50.0); Mean Corpuscular Hgb Conc. 30.6 g/dL (32.0-36.0); Mean Corpuscular Volume 64.2 fL (80.0-100.0); Monocytes % (auto) 10.2 % (0.0-12.0); Neutrophils % (auto) 77.6 % (37.0-80.0); Platelet Count (auto) 291 10^3/uL (140-450); Red Blood Cells 4.16 10^6/uL (4.5-5.90); White Blood Cell 7.8 10^3/uL (4.4-10.8)
[2024-11-21 05:36] LABS: Alkaline Phosphatase 71 U/L (46-116); Anion Gap 7 (5-15); BUN/Creatinine Ratio 17.9 (10.0-20.0); Blood Urea Nitrogen 15 mg/dL (9-23); Calcium 8.9 mg/dL (8.7-10.4); Carbon Dioxide 27 mmol/L (20-31); Chloride 107 mmol/L (98-107); Potassium 4.2 mmol/L (3.5-5.1); Sodium 141 mmol/L (136-145); Total Protein 5.8 g/dL (5.7-8.2)
[2024-11-21 05:44] LABS: Alanine Aminotransferase < 9 U/L (7-40); Albumin 3.1 g/dL (3.2-4.8); Aspartate Aminotransferase 10 U/L (13-40); Bilirubin, Total 0.3 mg/dL (0.2-1.0); Glucose 141 mg/dL (74-106)
[2024-11-21 06:02] LABS: Red Cell Distribution Width 23.8 % (11.8-14.3)
[2024-11-21 07:29] LABS: Anisocytosis Moderate; Hypochromia Slight; Platelet Estimate Adequate
--- NOTE | 2024-11-21 11:29 | DVHPN2 ---
Progress Note Date Seen: Nov 21, 2024 Medical Necessity Reason Pt with a Central, PICC or Fol: No Objective vital signs Vital Sign Date Time Temp Pulse Resp B/P (MAP) Pulse Ox O2 Delivery O2 Flow Rate FiO2 11/21/24 09:00 97.9 105 20 165/93 (117) 95 97.9 11/21/24 08:00 Nasal Cannula* 2 28 Total Intake and Output 11/20/24 11/20/24 11/21/24 15:00 23:00 07:00 Intake Total 650 ml 100 ml 3000 ml Output Total 400 ml 50 ml Balance 650 ml -300 ml 2950 ml medications Current Medications Medications Dose Ordered Sig/[place] Route Start Time Stop Time Status Last Admin Dose Admin Potassium Chloride/Dextrose/ Sod Cl 1,000 ml @ 120 mls/hr Q8H20M IV 11/18/24 14:30 11/21/24 09:23 120 MLS/HR Cefazolin Sodium/ Dextrose 50 ml @ 50 mls/hr Q8H IV 11/18/24 21:00 11/21/24 04:58 50 MLS/HR Metronidazole 100 ml @ 100 mls/hr Q8HR IV 11/18/24 22:00 11/21/24 06:04 100 MLS/HR Pantoprazole Sodium 40 mg DAILY IV 11/19/24 10:00 11/21/24 09:23 40 MG Ondansetron HCl 4 mg Q4HPRN PRN IV 11/18/24 14:30 Hydromorphone HCl 2 mg Q3HPRN PRN IV 11/18/24 19:45 11/20/24 20:24 2 MG Hydromorphone HCl 0.5 mg Q2HPRN PRN IV 11/19/24 08:45 11/19/24 16:40 0.5 MG Diagnostic Test (Pha) 1 strip ACHS 11/19/24 22:00 11/21/24 06:34 1 STRIP Insulin Human Regular ACHS SC 11/19/24 22:00 11/20/24 17:47 2 UNITS Dextrose 50 ml UD PRN IV 11/19/24 17:15 Enoxaparin Sodium 40 mg DAILY SC 11/20/24 10:00 11/21/24 09:22 40 MG laboratory and microbiology Laboratory Tests 11/21/24 04:59 Test 11/21/24 04:59 Range/Units Serum Glucose 141 H 74-106 mg/dL Problem List/Assessment/Plan Problem List/Assessment/Plan 11/21/24 cousin at bedside, patient has not had the NGT connected to suction "all night and all day", ambulated, abdomen appropriately tender, wound clean and well approximated, as the NGT was not being cared for by the RN appropriately I have removed the ngt and patient needs to remain strict NPO till he passes flatus. / Plan discussed with: Patient, Other Dietary Evaluation Review Recommendations by RD: Dietary education by RD Comments: 1) If patient remains NPO > 7 days, consider EN/TPN to meet at least 75% estimated energy needs 2) Advance to cardiac diet when medically feasible, pending OFFSET LABEL REWINDER approval 3) Refer to outpatient RD for weight management 4) Follow-up with gastroenterology and oncology 5) Continue to monitor I&O, labs, and skin integrity Expected Outcomes/Goals: 1) patient to receive nutrition support within 7 days of NPO status 2) labs to improve 3) diet to advance 4) f/u in 2-3 days FATIMAH ALVARADO MD Nov 21, 2024 11:29
[2024-11-21] MEDS: IOHEXOL 300 MG/ML 100ML BOTTLE IJ ONE (13:04)
--- NOTE | 2024-11-21 15:05 | DVH ---
History: metastasis Prelim dx met adeno CA. Comparison Study: None TECHNIQUE: Multidetector CT of the chest, abdomen and pelvis was performed from lower neck to pubic s ymphysis without the use of intravenous contrast. Axial, coronal and sagittal multiplanar reformats w ere performed by the technologist on a separate workstation. Radiation Dose Information: CT Dose: CTDI volume is 18.36 mGy. Dose-length product is 2554.28 mGy*cm FINDINGS: Lower neck: Normal thyroid. Lungs: Bibasilar areas of atelectasis or infiltrate posterior costophrenic angles left worse than rig ht. No suspicious pulmonary nodules or pulmonary masses. Heart/Vascular Structures: Normal heart size. Lymph Nodes: No adenopathy. Pleura: Pleural thickening noted posteriorly in the right upper lung field. Liver: The liver is normal in size. Non-contrast appearance of liver. Small amount of ascites around the liver. Gallbladder and Biliary Tree: Unremarkable. Spleen: Unremarkable. Pancreas: Unremarkable. Adrenal Glands: Unremarkable. Kidneys: 8-9 mm calculus upper pole right kidney no hydronephrosis Bladder: Unremarkable. Bowel: No bowel wall thickening or dilatation. Percutaneous drainage 2 from the right anterior abdomi nal wall entering the peritoneal cavity coursing into the pelvis . The appendix is not visualized; an d May have been surgically removed. Peritoneum: Small amount of ascites around the liver. Closure vinny in the anterior abdominal wall most likely from previous surgery. Lymphadenopathy: No enlarged lymph nodes. Vasculature: The visualized abdominal aorta is normal in size and caliber. Evaluation of the vascular structures is limited due to lack of intravenous contrast. Pelvic Organs: Unremarkable. Musculoskeletal: No acute osseous abnormality. Soft tissues: Unremarkable. IMPRESSION: 1. Postoperative changes noted in the anterior abdominal wall 2. avityPercutaneous drainage tube entering the peritoneal cavity from the anterior abdominal wall on the right. Coarsening to the right lateral abdominal wall and inferiorly posterior to the bladder. 3. Pleural thickening posteriorly in the right upper lung field. No pulmonary nodules or masses. No m ediastinal adenopathy. Hilar adenopathy can not be excluded without IV contrast. 4. Small amount of ascites around the liver. All CT scans at this medical facility are performed using dose modulation techniques as appropriate t o a performed exam including the following: Automated exposure control was utilized; adjustment of th e MA and/or KV according to patient size; and use of iterative reconstruction technique. HS:Y
--- NOTE | 2024-11-21 15:45 | DVHPNRES ---
Progress Note Date Seen: Nov 21, 2024 Resident Creating Document: NEDA ESPARZA RESIDENT Medical Necessity Reason Pt with a Central, PICC or Fol: No Subjective Review of Systems Patient is a 59-year-old male with a past medical history of hypertension, dyslipidemia presented to the ER with a chief complaint of right lower quadrant abdominal pain that started yesterday. He reports that last year in February he had left lower quadrant pain following which she went to his PCP who prescribed antibiotics and told him it was likely diverticulitis, he took antibiotics for about 2 weeks and the pain improved slightly but he has continued to have discomfort in the left lower quadrant on and off sometimes worsened with certain foods like chicken and meat. About 2 months ago he started to have pain in the hypogastric region which was also on and off and he did not pay much attention. Patient reports all through this his bowel movements were regular and denied any constipation. Since the last 1 week patient was having discomfort in the right lower quadrant but yesterday it was very severe that yet to come to the hospital for further evaluation. He reported having 3-4 episode of loose watery greenish stools in the last 2 days, episode of vomiting on Friday but denied any blood in the vomitus or in the stool. Off note patient also reports that since 2015 up to 2023 he was taking ibuprofen daily twice and stop taking when he had pain in the epigastrium and symptoms of dyspepsia like currently satiety last year and he went to his PCP. Patient denies any other complaint of chest pain or shortness of breath. He denies any fever or chills. Past medical history: Prediabetic, hypertension, dyslipidemia Past surgical history: Left lung lobectomy apparently due to pneumonia in 2011 Social history: Patient is occasional cannabis user oral cannabis, denies smoking and alcohol and any other drug use Home medications: Metformin, metoprolol 50 b.i.d., losartan 100 mg, hydrochlorothiazide 25 mg, atorvastatin 20 mg 11/18 - Patient seen and examined at bedside. Zosyn changed to q.6 hour. IV fluids changed to 0.9 NS with the d5w. 11/19-patient seen and examined in the ICU. Family at bedside. Patient is A&O x3. Requiring 3 L NC supplementation. Sutures dry clean and intact. Drain with serosanguineous discharge. Hypoactive bowel sounds. 11/21 - patient seen and examined. Hypoactive bowel sounds, not passing gas. PT on board. Surgeon discontinued NG. DC Levy. Ordered CT chest abdomen pelvis with IV contrast Objective vital signs Vital Sign Date Time Temp Pulse Resp B/P (MAP) Pulse Ox O2 Delivery O2 Flow Rate FiO2 11/21/24 13:37 112 20 140/83 11/21/24 13:00 97.9 95 97.9 11/21/24 08:00 Nasal Cannula* 2 28 Total Intake and Output 11/20/24 11/20/24 11/21/24 15:00 23:00 07:00 Intake Total 650 ml 100 ml 3000 ml Output Total 400 ml 50 ml Balance 650 ml -300 ml 2950 ml medications Current Medications Medications Dose Ordered Sig/[place] Route Start Time Stop Time Status Last Admin Dose Admin Potassium Chloride/Dextrose/ Sod Cl 1,000 ml @ 120 mls/hr Q8H20M IV 11/18/24 14:30 11/21/24 09:23 120 MLS/HR Cefazolin Sodium/ Dextrose 50 ml @ 50 mls/hr Q8H IV 11/18/24 21:00 11/21/24 15:24 50 MLS/HR Metronidazole 100 ml @ 100 mls/hr Q8HR IV 11/18/24 22:00 11/21/24 13:56 100 MLS/HR Pantoprazole Sodium 40 mg DAILY IV 11/19/24 10:00 11/21/24 09:23 40 MG Ondansetron HCl 4 mg Q4HPRN PRN IV 11/18/24 14:30 Hydromorphone HCl 2 mg Q3HPRN PRN IV 11/18/24 19:45 11/21/24 13:07 2 MG Hydromorphone HCl 0.5 mg Q2HPRN PRN IV 11/19/24 08:45 11/19/24 16:40 0.5 MG Diagnostic Test (Pha) 1 strip ACHS 11/19/24 22:00 11/21/24 11:36 1 STRIP Insulin Human Regular ACHS SC 11/19/24 22:00 11/21/24 11:37 2 UNITS Dextrose 50 ml UD PRN IV 11/19/24 17:15 Enoxaparin Sodium 40 mg DAILY SC 11/20/24 10:00 11/21/24 09:22 40 MG Examination Patient lying in bed, in no acute distress General: Obese, afebrile, palor, mucosae are moist Cardiovascular: Regular S1 and S2. No murmurs, gallops or rubs. No JVD elevation. No pedal edema Respiratory: Decreased bilateral air entry, requiring NC supplementation at 2L Abdomen: Soft, tender, nondistended, hypoactive bowel sounds, no rebound tenderness, no organomegaly, no masses. Suture dry clean intact, serosanguineous drainage noted in NICOLLE. Abdominal binder in place Genitourinary: Deferred MSK/skin: Mobilizes 4 limbs. Skin is dry and warm Neurological: No motor, no sensitive deficits, normal speech. Pupils are isocoric and reactive. Psych/Mental Status: A/Ox3 laboratory and microbiology Laboratory Tests 11/21/24 04:59 Test 11/21/24 04:59 Range/Units Serum Glucose 141 H 74-106 mg/dL Microbiology Date/Time Source Procedure Growth Status 11/18/24 22:57 Nose MRSA Screen - Final Complete Labs and/or images reviewed: Labs reviewed by me, Image(s) reviewed by me Problem List/Assessment/Plan Problem List/Assessment/Plan 11/18- patient underwent laparoscopic appendectomy converted to laparotomy and lysis of adhesions colon right hemicolectomy: Distal ileum to transverse colon anastomosis with the removal of fist sized tumor. Numerous Peritoneal implants were seen. The omentum was caked with a tumor. An omentectomy was accomplished and the tumor was submitted for histopathologic examination. The implants were submitted for histopathologic examination. The segment of the right colon, distal ileum, and appendix were submitted for histopathologic examination. Acute intractable abdominal pain Probable metastatic adenocarcinoma-newly diagnosed-status post resection 11/18 infectious/inflammatory enteritis SIRS likely due to above - CT abdomen pelvis without contrast shows abnormally dilated appendix measuring about 1.7 cm in diameter with a adjacent fat stranding, concentric wall thickening of ileum, multiple large mesenteric lymph nodes in the RLQ -CT chest/abdomen/pelvis with IV contrast pending -discontinued IV Zosyn q.6 hour starting 11/17, started cefazolin IV Q 8 hour. Abdominal culture growing E coli sensitive to cefazolin - IV half NS with D5W at 120 cc/hr -surgery on board - IV Protonix - patient NPO with NGT to LIS - advised regarding avoiding NSAIDs ibuprofen -never had a colonoscopy/EGD -hematology/oncology consultation: Dr. Maza we will set up outpatient follow up in her clinic. Microcytic hypochromic anemia likely due to iron-deficiency - retic count normal - ferritin low - iron panel shows low iron, low% saturation, normal TIBC YULI on CKD likely due to be VMN- FENA 0.5, perirenal - continue IV fluids - Moderate electrolytes and kidney function - creatinine downtrending to 1.42 PUD prophylaxis: Protonix Lovenox 40 mg sc daily Plan discussed with patient in which all questions have been answered Goals of care discussed with the the patient for more than 20 minutes, full code status Case discussed with Dr. Diego Plan discussed with: Patient My Orders My Orders Orders - NEDA ESPARZA Procedure Category Date Status Time Chst Ab Pel W Wo CT 11/21/24 Resulted Con-Iv Only 12:49 Dietary Evaluation Review Recommendations by RD: Dietary education by RD Comments: 1) If patient remains NPO > 7 days, consider EN/TPN to meet at least 75% estimated energy needs 2) Advance to cardiac diet when medically feasible, pending SPECIAL CRIMES INVESTIGATOR approval 3) Refer to outpatient RD for weight management 4) Follow-up with gastroenterology and oncology 5) Continue to monitor I&O, labs, and skin integrity Expected Outcomes/Goals: 1) patient to receive nutrition support within 7 days of NPO status 2) labs to improve 3) diet to advance 4) f/u in 2-3 days Date of Service: Nov 21, 2024 Billing Provider: CHARLES DIEGO MD Common Visit Codes: [id number] INP/OBS CARE(HIGH) NEDA ESPARZA Nov 21, 2024 15:45 CHARLES DIEGO MD Nov 22, 2024 01:57
[2024-11-22 01:38] VITALS: BP 130/76; PULSE 91; RESP 20; TEMP 97.1; O2SAT 97
[2024-11-22 05:00] VITALS: BP 157/84; PULSE 84; RESP 19; TEMP 98; O2SAT 96
[2024-11-22 05:52] LABS: Basophils # (auto) 0 10 ^3/uL (0-0.2); Basophils % (auto) 0.2 % (0.0-2.0); Eosinophils # (auto) 0.2 10 ^3/uL (0-0.8); Eosinophils % (auto) 2.2 % (0.0-7.0); Lymphocytes # (auto) 1.1 10 ^3/uL (0.4-5.4); Lymphocytes % (auto) 14.6 % (10.0-50.0); Mean Corpuscular Hemoglobin 19.7 pg (28.0-32.0); Mean Corpuscular Hgb Conc. 30.8 g/dL (32.0-36.0); Mean Corpuscular Volume 63.9 fL (80.0-100.0); Monocytes # (auto) 0.7 10 ^3/uL (0-1.3); Monocytes % (auto) 9.7 % (0.0-12.0); Neutrophils # (auto) 5.4 10 ^3/uL (1.6-8.6); Neutrophils % (auto) 73.3 % (37.0-80.0); Nucleated Red Blood Cells % 0.1 %; Platelet Count (auto) 306 10^3/uL (140-450); Red Blood Cells 4.07 10^6/uL (4.5-5.90); Red Cell Distribution Width 24.2 % (11.8-14.3); White Blood Cell 7.4 10^3/uL (4.4-10.8)
[2024-11-22 05:55] LABS: Chloride 106 mmol/L (98-107); Potassium 4.3 mmol/L (3.5-5.1); Sodium 141 mmol/L (136-145)
[2024-11-22 06:01] LABS: BUN/Creatinine Ratio 16.3 (10.0-20.0); Blood Urea Nitrogen 13 mg/dL (9-23)
[2024-11-22 06:10] LABS: Calcium 8.6 mg/dL (8.7-10.4); Glucose 110 mg/dL (74-106)
[2024-11-22 06:22] LABS: Anion Gap 8 (5-15); Carbon Dioxide 27 mmol/L (20-31)
[2024-11-22 09:00] VITALS: BP 129/79; PULSE 100; RESP 15; TEMP 97.9; O2SAT 95
[2024-11-22 13:00] VITALS: BP 133/81; PULSE 85; RESP 18; TEMP 98.1; O2SAT 92
--- NOTE | 2024-11-22 13:31 | DVHPN2 ---
Progress Note Date Seen: Nov 22, 2024 Medical Necessity Reason Pt with a Central, PICC or Fol: No Objective vital signs Vital Sign Date Time Temp Pulse Resp B/P (MAP) Pulse Ox O2 Delivery O2 Flow Rate FiO2 11/22/24 09:00 92 16 122/78 11/22/24 09:00 97.9 95 97.9 11/22/24 08:00 Room Air* 0 21 Total Intake and Output 11/21/24 11/21/24 11/22/24 15:00 23:00 07:00 Intake Total 703 ml 170 ml 0 ml Output Total 1325 ml 50 ml Balance 703 ml -1155 ml -50 ml medications Current Medications Medications Dose Ordered Sig/[place] Route Start Time Stop Time Status Last Admin Dose Admin Potassium Chloride/Dextrose/ Sod Cl 1,000 ml @ 120 mls/hr Q8H20M IV 11/18/24 14:30 11/22/24 13:15 120 MLS/HR Cefazolin Sodium/ Dextrose 50 ml @ 50 mls/hr Q8H IV 11/18/24 21:00 11/22/24 13:12 50 MLS/HR Metronidazole 100 ml @ 100 mls/hr Q8HR IV 11/18/24 22:00 11/22/24 06:00 100 MLS/HR Pantoprazole Sodium 40 mg DAILY IV 11/19/24 10:00 11/22/24 09:17 40 MG Ondansetron HCl 4 mg Q4HPRN PRN IV 11/18/24 14:30 Hydromorphone HCl 2 mg Q3HPRN PRN IV 11/18/24 19:45 11/21/24 20:18 2 MG Hydromorphone HCl 0.5 mg Q2HPRN PRN IV 11/19/24 08:45 11/22/24 08:24 0.5 MG Diagnostic Test (Pha) 1 strip ACHS 11/19/24 22:00 11/22/24 11:30 1 STRIP Insulin Human Regular ACHS SC 11/19/24 22:00 11/21/24 11:37 2 UNITS Dextrose 50 ml UD PRN IV 11/19/24 17:15 Enoxaparin Sodium 40 mg DAILY SC 11/20/24 10:00 11/22/24 09:17 40 MG laboratory and microbiology Laboratory Tests 11/22/24 05:07 Test 11/22/24 05:07 Range/Units Serum Glucose 110 H 74-106 mg/dL Problem List/Assessment/Plan Problem List/Assessment/Plan 11/21/24 cousin at bedside, patient has not had the NGT connected to suction "all night and all day", ambulated, abdomen appropriately tender, wound clean and well approximated, as the NGT was not being cared for by the RN appropriately I have removed the ngt and patient needs to remain strict NPO till he passes flatus. / 11/22/24 NO FLATUS NO BM, AMBULATED, WOUND CLEAN AND WELL APPROXIMATED, NEEDS TO REMAIN NPO TILL BOWEL FUNCTION RETURNS. MUST AMBULATE IN HALLWAY Q 4 HOURS. Plan discussed with: Patient Dietary Evaluation Review Recommendations by RD: Dietary education by RD Comments: 1) If patient remains NPO > 7 days, consider EN/TPN to meet at least 75% estimated energy needs 2) Advance to cardiac diet when medically feasible, pending MATERIAL HANDLING EQUIPMENT STEVEDORE approval 3) Refer to outpatient RD for weight management 4) Follow-up with gastroenterology and oncology 5) Continue to monitor I&O, labs, and skin integrity Expected Outcomes/Goals: 1) patient to receive nutrition support within 7 days of NPO status 2) labs to improve 3) diet to advance 4) f/u in 2-3 days FATIMAH ALVARADO MD Nov 22, 2024 13:31
[2024-11-22] MEDS ORDERED: TPN PER PHARMACY 0 ML IV SCH (14:00)
[2024-11-22] MEDS ORDERED: DEXTROSE (50%) 50ML SYRG IV SCH (14:45)
[2024-11-22 15:08] LABS: Phosphorus 2.5 mg/dL (2.4-5.1)
[2024-11-22 16:58] VITALS: BP 139/92; PULSE 103; RESP 17; TEMP 98.2; O2SAT 93
[2024-11-22] MEDS: InsuLIN REG 1unit/0.01ml Soln (100units/ml) SC SCH (17:22)
[2024-11-22] MEDS: ACCU-CHEK COMFORT CURVE STRIP VI SCH (17:23)
--- NOTE | 2024-11-22 18:10 | DVHPNRES ---
Progress Note Date Seen: Nov 22, 2024 Resident Creating Document: NEDA ESPARZA RESIDENT Medical Necessity Reason Pt with a Central, PICC or Fol: No Subjective Review of Systems Patient is a 59-year-old male with a past medical history of hypertension, dyslipidemia presented to the ER with a chief complaint of right lower quadrant abdominal pain that started yesterday. He reports that last year in February he had left lower quadrant pain following which she went to his PCP who prescribed antibiotics and told him it was likely diverticulitis, he took antibiotics for about 2 weeks and the pain improved slightly but he has continued to have discomfort in the left lower quadrant on and off sometimes worsened with certain foods like chicken and meat. About 2 months ago he started to have pain in the hypogastric region which was also on and off and he did not pay much attention. Patient reports all through this his bowel movements were regular and denied any constipation. Since the last 1 week patient was having discomfort in the right lower quadrant but yesterday it was very severe that yet to come to the hospital for further evaluation. He reported having 3-4 episode of loose watery greenish stools in the last 2 days, episode of vomiting on Friday but denied any blood in the vomitus or in the stool. Off note patient also reports that since 2015 up to 2023 he was taking ibuprofen daily twice and stop taking when he had pain in the epigastrium and symptoms of dyspepsia like currently satiety last year and he went to his PCP. Patient denies any other complaint of chest pain or shortness of breath. He denies any fever or chills. Past medical history: Prediabetic, hypertension, dyslipidemia Past surgical history: Left lung lobectomy apparently due to pneumonia in 2011 Social history: Patient is occasional cannabis user oral cannabis, denies smoking and alcohol and any other drug use Home medications: Metformin, metoprolol 50 b.i.d., losartan 100 mg, hydrochlorothiazide 25 mg, atorvastatin 20 mg 11/18 - Patient seen and examined at bedside. Zosyn changed to q.6 hour. IV fluids changed to 0.9 NS with the d5w. 11/19-patient seen and examined in the ICU. Family at bedside. Patient is A&O x3. Requiring 3 L NC supplementation. Sutures dry clean and intact. Drain with serosanguineous discharge. Hypoactive bowel sounds. 11/21 - patient seen and examined. Hypoactive bowel sounds, not passing gas. PT on board. Surgeon discontinued NG. DC Levy. Ordered CT chest abdomen pelvis with IV contrast 11/22-patient seen and examined. Hypoactive bowel sounds this will not passing gas. Patient is ambulatory. Started Clinimix per pharmacy. Objective vital signs Vital Sign Date Time Temp Pulse Resp B/P (MAP) Pulse Ox O2 Delivery O2 Flow Rate FiO2 11/22/24 17:00 99 16 128/89 11/22/24 16:58 98.2 93 98.2 11/22/24 08:00 Room Air* 0 21 Total Intake and Output 11/21/24 11/21/24 11/22/24 15:00 23:00 07:00 Intake Total 703 ml 170 ml 0 ml Output Total 1325 ml 50 ml Balance 703 ml -1155 ml -50 ml medications Current Medications Medications Dose Ordered Sig/[place] Route Start Time Stop Time Status Last Admin Dose Admin Potassium Chloride/Dextrose/ Sod Cl 1,000 ml @ 120 mls/hr Q8H20M IV 11/18/24 14:30 11/22/24 13:15 120 MLS/HR Cefazolin Sodium/ Dextrose 50 ml @ 50 mls/hr Q8H IV 11/18/24 21:00 11/22/24 13:12 50 MLS/HR Metronidazole 100 ml @ 100 mls/hr Q8HR IV 11/18/24 22:00 11/22/24 14:37 100 MLS/HR Pantoprazole Sodium 40 mg DAILY IV 11/19/24 10:00 11/22/24 09:17 40 MG Ondansetron HCl 4 mg Q4HPRN PRN IV 11/18/24 14:30 Hydromorphone HCl 2 mg Q3HPRN PRN IV 11/18/24 19:45 11/21/24 20:18 2 MG Hydromorphone HCl 0.5 mg Q2HPRN PRN IV 11/19/24 08:45 11/22/24 16:21 0.5 MG Enoxaparin Sodium 40 mg DAILY SC 11/20/24 10:00 11/22/24 09:17 40 MG Amino Acids 0 ml @ 0 mls/hr PER PHARMACY IV 11/22/24 14:00 Diagnostic Test (Pha) 1 strip Q6HR 11/22/24 18:00 11/22/24 17:23 1 STRIP Insulin Human Regular FOLLOW SLIDING SCALE Q6HR SC 11/22/24 18:00 Dextrose 50 ml UD IV 11/22/24 14:45 Examination Patient lying in bed, in no acute distress General: Obese, afebrile, palor, mucosae are moist Cardiovascular: Regular S1 and S2. No murmurs, gallops or rubs. No JVD elevation. No pedal edema Respiratory: Decreased bilateral air entry, on room air Abdomen: Soft, tender, nondistended, hypoactive bowel sounds, no rebound tenderness, no organomegaly, no masses. Suture dry clean intact, serosanguineous drainage noted in NICOLLE. Abdominal binder in place Genitourinary: Deferred MSK/skin: Mobilizes 4 limbs. Skin is dry and warm Neurological: No motor, no sensitive deficits, normal speech. Pupils are isocoric and reactive. Psych/Mental Status: A/Ox3 laboratory and microbiology Laboratory Tests 11/22/24 05:07 Test 11/22/24 05:07 Range/Units Serum Glucose 110 H 74-106 mg/dL Microbiology Date/Time Source Procedure Growth Status 11/18/24 22:57 Nose MRSA Screen - Final Complete Labs and/or images reviewed: Labs reviewed by me, Image(s) reviewed by me Problem List/Assessment/Plan Problem List/Assessment/Plan 11/18- patient underwent laparoscopic appendectomy converted to laparotomy and lysis of adhesions colon right hemicolectomy: Distal ileum to transverse colon anastomosis with the removal of fist sized tumor. Numerous Peritoneal implants were seen. The omentum was caked with a tumor. An omentectomy was accomplished and the tumor was submitted for histopathologic examination. The implants were submitted for histopathologic examination. The segment of the right colon, distal ileum, and appendix were submitted for histopathologic examination. Acute intractable abdominal pain Probable metastatic adenocarcinoma-newly diagnosed-status post resection 11/18 infectious/inflammatory enteritis SIRS likely due to above Acute hypoxic respiratory failure postop-resolved - CT abdomen pelvis without contrast shows abnormally dilated appendix measuring about 1.7 cm in diameter with a adjacent fat stranding, concentric wall thickening of ileum, multiple large mesenteric lymph nodes in the RLQ -CT chest/abdomen/pelvis with IV contrast pending -discontinued IV Zosyn q.6 hour starting 11/17, started cefazolin IV Q 8 hour. Abdominal culture growing E coli sensitive to cefazolin - IV half NS with D5W at 120 cc/hr -surgery on board - IV Protonix - patient NPO with NGT to LIS - advised regarding avoiding NSAIDs ibuprofen -never had a colonoscopy/EGD -hematology/oncology consultation: Dr. Maza we will set up outpatient follow up in her clinic. Microcytic hypochromic anemia likely due to iron-deficiency - retic count normal - ferritin low - iron panel shows low iron, low% saturation, normal TIBC YULI on CKD likely due to be VMN- FENA 0.5, perirenal - continue IV fluids - Moderate electrolytes and kidney function - creatinine downtrending to 1.42 PUD prophylaxis: Protonix Lovenox 40 mg sc daily Diet: Clinimix per pharmacy Plan discussed with patient in which all questions have been answered Goals of care discussed with the the patient for more than 20 minutes, full code status Case discussed with Dr. maradiaga Plan discussed with: Patient, Spouse My Orders My Orders Orders - NEDA ESPARZA Procedure Category Date Status Time Transfer Orders XFER 11/22/24 Transmitted 08:04 Discontinue Tele LUIS 11/22/24 In Process 08:04 Tpn Per Pharmacy PHA 11/22/24 In Process 14:00 Glucose Blood PHA 11/22/24 In Process (Accu-Chek Comfort 18:00 Insulin R (Human) PHA 11/22/24 In Process (Insulin R) 18:00 Dextrose 50% Syringe PHA 11/22/24 In Process 14:45 Amino Acid Infusion PHA 11/22/24 In Process In D10w (Clinimix 4. 22:00 Comprehensive LAB 11/23/24 Verified Metabolic Panel 04:00 Magnesium LAB 11/23/24 Verified 04:00 Phosphorus LAB 11/23/24 Verified 04:00 Tpn Per Pharmacy LUIS 11/22/24 In Process 22:00 Dietary Evaluation Review Recommendations by RD: Dietary education by RD Comments: 1) If patient remains NPO > 7 days, consider EN/TPN to meet at least 75% estimated energy needs 2) Advance to cardiac diet when medically feasible, pending VIBRATING SCREED OPERATOR approval 3) Refer to outpatient RD for weight management 4) Follow-up with gastroenterology and oncology 5) Continue to monitor I&O, labs, and skin integrity Expected Outcomes/Goals: 1) patient to receive nutrition support within 7 days of NPO status 2) labs to improve 3) diet to advance 4) f/u in 2-3 days Date of Service: Nov 22, 2024 Billing Provider: ERLINDA MARADIAGA MD Common Visit Codes: [id number] INP/OBS CARE(HIGH) NEDA ESPARZA RESIDENT Nov 22, 2024 18:10 ERLINDA MARADIAGA MD Nov 22, 2024 22:55
[2024-11-22 21:00] VITALS: BP 164/85; PULSE 90; RESP 20; TEMP 98.9; O2SAT 94
[2024-11-22] MEDS: AMINO ACID INFUSION IN D10W 1,000 ML IV ONE (21:56)
[2024-11-23] VITALS (9 sets, daily range): BP systolic 138–168; BP diastolic 82–99; PULSE 74–102; RESP 18–20; TEMP 97.1–98.5; O2SAT 93–96
[2024-11-23 06:23] LABS: Basophils # (auto) 0 10 ^3/uL (0-0.2); Hemoglobin 8.6 g/dL (13.5-17.5); Lymphocytes # (auto) 1.3 10 ^3/uL (0.4-5.4); Monocytes # (auto) 0.8 10 ^3/uL (0-1.3); Platelet Count (auto) 289 10^3/uL (140-450); White Blood Cell 7.6 10^3/uL (4.4-10.8)
[2024-11-23 06:28] LABS: Basophils % (auto) 0.5 % (0.0-2.0); Eosinophils # (auto) 0.2 10 ^3/uL (0-0.8); Eosinophils % (auto) 3.1 % (0.0-7.0); Hematocrit 28.2 % (41.0-53.0); Lymphocytes % (auto) 16.9 % (10.0-50.0); Mean Corpuscular Hemoglobin 20.1 pg (28.0-32.0); Mean Corpuscular Hgb Conc. 30.5 g/dL (32.0-36.0); Mean Corpuscular Volume 65.9 fL (80.0-100.0); Monocytes % (auto) 10.9 % (0.0-12.0); Neutrophils # (auto) 5.2 10 ^3/uL (1.6-8.6); Neutrophils % (auto) 68.6 % (37.0-80.0); Nucleated Red Blood Cells % 0.1 %; Red Blood Cells 4.27 10^6/uL (4.5-5.90); Red Cell Distribution Width 24.2 % (11.8-14.3)
[2024-11-23 06:33] LABS: Alkaline Phosphatase 67 U/L (46-116); Anion Gap 8 (5-15); BUN/Creatinine Ratio 15.6 (10.0-20.0); Blood Urea Nitrogen 12 mg/dL (9-23); Calcium 8.7 mg/dL (8.7-10.4); Carbon Dioxide 26 mmol/L (20-31); Chloride 106 mmol/L (98-107); Magnesium 1.8 mg/dL (1.6-2.6); Potassium 4.1 mmol/L (3.5-5.1); Sodium 140 mmol/L (136-145); Total Protein 6.1 g/dL (5.7-8.2)
[2024-11-23 06:41] LABS: Alanine Aminotransferase < 9 U/L (7-40); Albumin 3.2 g/dL (3.2-4.8); Bilirubin, Total 0.2 mg/dL (0.2-1.0); Glucose 127 mg/dL (74-106); Phosphorus 2.3 mg/dL (2.4-5.1)
[2024-11-23 07:29] LABS: Aspartate Aminotransferase 11 U/L (13-40)
[2024-11-23] MEDS ORDERED: hydrALAZINE HCL 20 MG/ML VL IV PRN (08:30)
--- NOTE | 2024-11-23 11:20 | DVHPN2 ---
Progress Note Date Seen: Nov 23, 2024 Medical Necessity Reason Pt with a Central, PICC or Fol: No Objective vital signs Vital Sign Date Time Temp Pulse Resp B/P (MAP) Pulse Ox O2 Delivery O2 Flow Rate FiO2 11/23/24 08:30 98.1 85 18 161/89 (113) 94 98.1 11/23/24 08:00 Room Air* 0 21 Total Intake and Output 11/22/24 11/22/24 11/23/24 15:00 23:00 07:00 Intake Total 250 ml 1000 ml Output Total 70 ml 640 ml 300 ml Balance -70 ml -390 ml 700 ml medications Current Medications Medications Dose Ordered Sig/[place] Route Start Time Stop Time Status Last Admin Dose Admin Potassium Chloride/Dextrose/ Sod Cl 1,000 ml @ 120 mls/hr Q8H20M IV 11/18/24 14:30 11/23/24 05:05 120 MLS/HR Cefazolin Sodium/ Dextrose 50 ml @ 50 mls/hr Q8H IV 11/18/24 21:00 11/23/24 05:05 50 MLS/HR Metronidazole 100 ml @ 100 mls/hr Q8HR IV 11/18/24 22:00 11/23/24 06:48 100 MLS/HR Pantoprazole Sodium 40 mg DAILY IV 11/19/24 10:00 11/23/24 09:09 40 MG Ondansetron HCl 4 mg Q4HPRN PRN IV 11/18/24 14:30 Hydromorphone HCl 2 mg Q3HPRN PRN IV 11/18/24 19:45 11/21/24 20:18 2 MG Hydromorphone HCl 0.5 mg Q2HPRN PRN IV 11/19/24 08:45 11/22/24 21:22 0.5 MG Enoxaparin Sodium 40 mg DAILY SC 11/20/24 10:00 11/23/24 09:09 40 MG Amino Acids 0 ml @ 0 mls/hr PER PHARMACY IV 11/22/24 14:00 Diagnostic Test (Pha) 1 strip Q6HR 11/22/24 18:00 11/23/24 06:14 1 STRIP Insulin Human Regular FOLLOW SLIDING SCALE Q6HR SC 11/22/24 18:00 Dextrose 50 ml UD IV 11/22/24 14:45 Hydralazine HCl 10 mg Q6HP PRN IV 11/23/24 08:30 laboratory and microbiology Laboratory Tests 11/23/24 04:36 Test 11/23/24 04:36 Range/Units Serum Glucose 127 H 74-106 mg/dL Problem List/Assessment/Plan Problem List/Assessment/Plan 11/21/24 cousin at bedside, patient has not had the NGT connected to suction "all night and all day", ambulated, abdomen appropriately tender, wound clean and well approximated, as the NGT was not being cared for by the RN appropriately I have removed the ngt and patient needs to remain strict NPO till he passes flatus. / 11/22/24 NO FLATUS NO BM, AMBULATED, WOUND CLEAN AND WELL APPROXIMATED, NEEDS TO REMAIN NPO TILL BOWEL FUNCTION RETURNS. MUST AMBULATE IN HALLWAY Q 4 HOURS. 11/23/24 passing flatus, is hungry, wound clean and well approximated, NICOLLE drainage mud cleaner operator,serous. clear liquids po to resume Plan discussed with: Patient Dietary Evaluation Review Recommendations by RD: Dietary education by RD Comments: 1) If patient remains NPO > 7 days, consider EN/TPN to meet at least 75% estimated energy needs 2) Advance to cardiac diet when medically feasible, pending SUPERVISOR TRANSCRIBING OPERATORS approval 3) Refer to outpatient RD for weight management 4) Follow-up with gastroenterology and oncology 5) Continue to monitor I&O, labs, and skin integrity Expected Outcomes/Goals: 1) patient to receive nutrition support within 7 days of NPO status 2) labs to improve 3) diet to advance 4) f/u in 2-3 days FATIMAH ALVARADO MD Nov 23, 2024 11:20
--- NOTE | 2024-11-23 16:53 | DVHPNRES ---
Progress Note Date Seen: Nov 23, 2024 Resident Creating Document: NEDA ESPARZA RESIDENT Medical Necessity Reason Pt with a Central, PICC or Fol: No Subjective Review of Systems Patient is a 59-year-old male with a past medical history of hypertension, dyslipidemia presented to the ER with a chief complaint of right lower quadrant abdominal pain that started yesterday. He reports that last year in February he had left lower quadrant pain following which she went to his PCP who prescribed antibiotics and told him it was likely diverticulitis, he took antibiotics for about 2 weeks and the pain improved slightly but he has continued to have discomfort in the left lower quadrant on and off sometimes worsened with certain foods like chicken and meat. About 2 months ago he started to have pain in the hypogastric region which was also on and off and he did not pay much attention. Patient reports all through this his bowel movements were regular and denied any constipation. Since the last 1 week patient was having discomfort in the right lower quadrant but yesterday it was very severe that yet to come to the hospital for further evaluation. He reported having 3-4 episode of loose watery greenish stools in the last 2 days, episode of vomiting on Friday but denied any blood in the vomitus or in the stool. Off note patient also reports that since 2015 up to 2023 he was taking ibuprofen daily twice and stop taking when he had pain in the epigastrium and symptoms of dyspepsia like currently satiety last year and he went to his PCP. Patient denies any other complaint of chest pain or shortness of breath. He denies any fever or chills. Past medical history: Prediabetic, hypertension, dyslipidemia Past surgical history: Left lung lobectomy apparently due to pneumonia in 2011 Social history: Patient is occasional cannabis user oral cannabis, denies smoking and alcohol and any other drug use Home medications: Metformin, metoprolol 50 b.i.d., losartan 100 mg, hydrochlorothiazide 25 mg, atorvastatin 20 mg 11/18 - Patient seen and examined at bedside. Zosyn changed to q.6 hour. IV fluids changed to 0.9 NS with the d5w. 11/19-patient seen and examined in the ICU. Family at bedside. Patient is A&O x3. Requiring 3 L NC supplementation. Sutures dry clean and intact. Drain with serosanguineous discharge. Hypoactive bowel sounds. 11/21 - patient seen and examined. Hypoactive bowel sounds, not passing gas. PT on board. Surgeon discontinued NG. DC Levy. Ordered CT chest abdomen pelvis with IV contrast 11/22-patient seen and examined. Hypoactive bowel sounds this will not passing gas. Patient is ambulatory. Started Clinimix per pharmacy. 11/23-patient seen and examined. Increasing bowel sounds, patient passed flatus. Clear liquid diet started. Clinimix discontinued. Objective vital signs Vital Sign Date Time Temp Pulse Resp B/P (MAP) Pulse Ox O2 Delivery O2 Flow Rate FiO2 11/23/24 16:21 80 18 130/65 11/23/24 13:30 97.1 93 97.1 11/23/24 08:00 Room Air* 0 21 Total Intake and Output 11/22/24 11/22/24 11/23/24 15:00 23:00 07:00 Intake Total 250 ml 1000 ml Output Total 70 ml 640 ml 300 ml Balance -70 ml -390 ml 700 ml medications Current Medications Medications Dose Ordered Sig/[place] Route Start Time Stop Time Status Last Admin Dose Admin Cefazolin Sodium/ Dextrose 50 ml @ 50 mls/hr Q8H IV 11/18/24 21:00 11/23/24 12:01 50 MLS/HR Metronidazole 100 ml @ 100 mls/hr Q8HR IV 11/18/24 22:00 11/23/24 15:24 100 MLS/HR Pantoprazole Sodium 40 mg DAILY IV 11/19/24 10:00 11/23/24 09:09 40 MG Ondansetron HCl 4 mg Q4HPRN PRN IV 11/18/24 14:30 Hydromorphone HCl 2 mg Q3HPRN PRN IV 11/18/24 19:45 11/21/24 20:18 2 MG Hydromorphone HCl 0.5 mg Q2HPRN PRN IV 11/19/24 08:45 11/23/24 15:51 0.5 MG Enoxaparin Sodium 40 mg DAILY SC 11/20/24 10:00 11/23/24 09:09 40 MG Diagnostic Test (Pha) 1 strip Q6HR 11/22/24 18:00 11/23/24 11:50 1 STRIP Insulin Human Regular FOLLOW SLIDING SCALE Q6HR SC 11/22/24 18:00 11/23/24 12:11 2 UNITS Dextrose 50 ml UD IV 11/22/24 14:45 Hydralazine HCl 10 mg Q6HP PRN IV 11/23/24 08:30 Examination Patient lying in bed, in no acute distress General: Obese, afebrile, palor, mucosae are moist Cardiovascular: Regular S1 and S2. No murmurs, gallops or rubs. No JVD elevation. No pedal edema Respiratory: Decreased bilateral air entry, on room air Abdomen: Soft, tender, nondistended, hypoactive bowel sounds, no rebound tenderness, no organomegaly, no masses. Suture dry clean intact, decreasing serosanguineous drainage noted in NICOLLE. Abdominal binder in place Genitourinary: Deferred MSK/skin: Mobilizes 4 limbs. Skin is dry and warm Neurological: No motor, no sensitive deficits, normal speech. Pupils are isocoric and reactive. Psych/Mental Status: A/Ox3 laboratory and microbiology Laboratory Tests 11/23/24 04:36 Test 11/23/24 04:36 Range/Units Serum Glucose 127 H 74-106 mg/dL Microbiology Date/Time Source Procedure Growth Status 11/18/24 22:57 Nose MRSA Screen - Final Complete Labs and/or images reviewed: Labs reviewed by me, Image(s) reviewed by me Problem List/Assessment/Plan Problem List/Assessment/Plan 11/18- patient underwent laparoscopic appendectomy converted to laparotomy and lysis of adhesions colon right hemicolectomy: Distal ileum to transverse colon anastomosis with the removal of fist sized tumor. Numerous Peritoneal implants were seen. The omentum was caked with a tumor. An omentectomy was accomplished and the tumor was submitted for histopathologic examination. The implants were submitted for histopathologic examination. The segment of the right colon, distal ileum, and appendix were submitted for histopathologic examination. Acute intractable abdominal pain Probable metastatic adenocarcinoma-newly diagnosed-status post resection 11/18 infectious/inflammatory enteritis SIRS likely due to above Acute hypoxic respiratory failure postop-resolved - CT abdomen pelvis without contrast shows abnormally dilated appendix measuring about 1.7 cm in diameter with a adjacent fat stranding, concentric wall thickening of ileum, multiple large mesenteric lymph nodes in the RLQ -CT chest/abdomen/pelvis with IV contrast pending -discontinued IV Zosyn q.6 hour starting 11/17, started cefazolin IV Q 8 hour. Abdominal culture growing E coli sensitive to cefazolin -discontinued on 11/23 IV half NS with D5W at 120 cc/hr -surgery on board - IV Protonix - patient NPO with NGT to LIS - advised regarding avoiding NSAIDs ibuprofen -never had a colonoscopy/EGD -hematology/oncology consultation: Dr. Maza we will set up outpatient follow up in her clinic. Microcytic hypochromic anemia likely due to iron-deficiency - retic count normal - ferritin low - iron panel shows low iron, low% saturation, normal TIBC YULI on CKD likely due to be VMN- FENA 0.5, perirenal - continue IV fluids - Moderate electrolytes and kidney function - creatinine downtrending to 1.42 PUD prophylaxis: Protonix Lovenox 40 mg sc daily Diet: Clear liquid diet, discontinued Clinimix PT on board Patient is ambulating Plan discussed with patient, at bedside in which all questions have been answered Goals of care discussed with the the patient for more than 20 minutes, full code status Case discussed with Dr. maradiaga Plan discussed with: Patient My Orders My Orders Orders - NEDA ESPARZA Procedure Category Date Status Time Hydralazine Injection PHA 11/23/24 In Process (Apresoline Inject 08:30 Dietary Evaluation Review Recommendations by RD: Dietary education by RD Comments: 1) If patient remains NPO > 7 days, consider EN/TPN to meet at least 75% estimated energy needs 2) Advance to cardiac diet when medically feasible, pending DIRECTOR OF EDUCATION AND TRAINING approval 3) Refer to outpatient RD for weight management 4) Follow-up with gastroenterology and oncology 5) Continue to monitor I&O, labs, and skin integrity Expected Outcomes/Goals: 1) patient to receive nutrition support within 7 days of NPO status 2) labs to improve 3) diet to advance 4) f/u in 2-3 days Date of Service: Nov 23, 2024 Billing Provider: ERLINDA MARADIAGA MD Common Visit Codes: [id number] INP/OBS CARE(HIGH) NEDA ESPARZA Nov 23, 2024 16:53 ERLINDA MARADIAGA MD Nov 23, 2024 21:37
[2024-11-24 01:00] VITALS: BP 154/92; PULSE 95; RESP 20; TEMP 98.1; O2SAT 93
[2024-11-24 05:00] VITALS: BP 150/89; PULSE 98; RESP 20; TEMP 99.4; O2SAT 95
[2024-11-24 08:11] LABS: Basophils # (auto) 0 10 ^3/uL (0-0.2); Basophils % (auto) 0.4 % (0.0-2.0); Eosinophils # (auto) 0.2 10 ^3/uL (0-0.8); Eosinophils % (auto) 2.1 % (0.0-7.0); Hematocrit 28.5 % (41.0-53.0); Hemoglobin 8.7 g/dL (13.5-17.5); Lymphocytes # (auto) 1.1 10 ^3/uL (0.4-5.4); Lymphocytes % (auto) 13.5 % (10.0-50.0); Mean Corpuscular Hemoglobin 19.6 pg (28.0-32.0); Mean Corpuscular Hgb Conc. 30.7 g/dL (32.0-36.0); Mean Corpuscular Volume 63.9 fL (80.0-100.0); Monocytes # (auto) 0.7 10 ^3/uL (0-1.3); Monocytes % (auto) 9.2 % (0.0-12.0); Neutrophils # (auto) 5.8 10 ^3/uL (1.6-8.6); Neutrophils % (auto) 74.8 % (37.0-80.0); Platelet Count (auto) 307 10^3/uL (140-450); Red Blood Cells 4.46 10^6/uL (4.5-5.90); White Blood Cell 7.8 10^3/uL (4.4-10.8)
[2024-11-24 08:16] LABS: Chloride 105 mmol/L (98-107); Potassium 4.1 mmol/L (3.5-5.1); Sodium 139 mmol/L (136-145)
[2024-11-24 08:17] LABS: Anion Gap 8 (5-15); Calcium 9.2 mg/dL (8.7-10.4); Carbon Dioxide 26 mmol/L (20-31)
[2024-11-24 08:22] LABS: BUN/Creatinine Ratio 16.3 (10.0-20.0); Blood Urea Nitrogen 13 mg/dL (9-23); Glucose 114 mg/dL (74-106)
[2024-11-24 09:00] VITALS: BP 151/87; PULSE 86; RESP 20; TEMP 98.3; O2SAT 93
[2024-11-24 13:00] VITALS: BP 138/90; PULSE 103; RESP 18; TEMP 99.3; O2SAT 95
--- NOTE | 2024-11-24 14:39 | DVHPN2 ---
Progress Note Date Seen: Nov 24, 2024 Medical Necessity Reason Pt with a Central, PICC or Fol: No Objective vital signs Vital Sign Date Time Temp Pulse Resp B/P (MAP) Pulse Ox O2 Delivery O2 Flow Rate FiO2 11/24/24 09:00 98.3 86 20 151/87 (108) 93 98.3 11/24/24 08:00 Room Air* 0 21 Total Intake and Output 11/23/24 11/23/24 11/24/24 15:00 23:00 07:00 Intake Total 50 ml 320 ml 500 ml Output Total 155 ml 265 ml Balance 50 ml 165 ml 235 ml medications Current Medications Medications Dose Ordered Sig/[place] Route Start Time Stop Time Status Last Admin Dose Admin Cefazolin Sodium/ Dextrose 50 ml @ 50 mls/hr Q8H IV 11/18/24 21:00 11/24/24 13:11 50 MLS/HR Metronidazole 100 ml @ 100 mls/hr Q8HR IV 11/18/24 22:00 11/24/24 07:45 100 MLS/HR Pantoprazole Sodium 40 mg DAILY IV 11/19/24 10:00 11/24/24 08:52 40 MG Ondansetron HCl 4 mg Q4HPRN PRN IV 11/18/24 14:30 Hydromorphone HCl 2 mg Q3HPRN PRN IV 11/18/24 19:45 11/21/24 20:18 2 MG Hydromorphone HCl 0.5 mg Q2HPRN PRN IV 11/19/24 08:45 11/23/24 22:38 0.5 MG Enoxaparin Sodium 40 mg DAILY SC 11/20/24 10:00 11/24/24 08:52 40 MG Hydralazine HCl 10 mg Q6HP PRN IV 11/23/24 08:30 laboratory and microbiology Laboratory Tests 11/24/24 07:44 Test 11/24/24 07:44 Range/Units Serum Glucose 114 H 74-106 mg/dL Problem List/Assessment/Plan Problem List/Assessment/Plan 11/21/24 cousin at bedside, patient has not had the NGT connected to suction "all night and all day", ambulated, abdomen appropriately tender, wound clean and well approximated, as the NGT was not being cared for by the RN appropriately I have removed the ngt and patient needs to remain strict NPO till he passes flatus. / 11/22/24 NO FLATUS NO BM, AMBULATED, WOUND CLEAN AND WELL APPROXIMATED, NEEDS TO REMAIN NPO TILL BOWEL FUNCTION RETURNS. MUST AMBULATE IN HALLWAY Q 4 HOURS. 11/23/24 passing flatus, is hungry, wound clean and well approximated, NICOLLE drainage bus cleaner,serous. clear liquids po to resume 11/24/24 doing well, will give regular diet and if tolerated will dc home in AM Plan discussed with: Patient, Spouse Dietary Evaluation Review Recommendations by RD: Dietary education by RD Comments: 1) If patient remains NPO > 7 days, consider EN/TPN to meet at least 75% estimated energy needs 2) Advance to cardiac diet when medically feasible, pending END PACKER approval 3) Refer to outpatient RD for weight management 4) Follow-up with gastroenterology and oncology 5) Continue to monitor I&O, labs, and skin integrity Expected Outcomes/Goals: 1) patient to receive nutrition support within 7 days of NPO status 2) labs to improve 3) diet to advance 4) f/u in 2-3 days FATIMAH ALVARADO MD Nov 24, 2024 14:39
--- NOTE | 2024-11-24 15:58 | DVHPNRES ---
Progress Note Date Seen: Nov 24, 2024 Resident Creating Document: NEDA ESPARZA RESIDENT Medical Necessity Reason Pt with a Central, PICC or Fol: No Subjective Review of Systems Patient is a 59-year-old male with a past medical history of hypertension, dyslipidemia presented to the ER with a chief complaint of right lower quadrant abdominal pain that started yesterday. He reports that last year in February he had left lower quadrant pain following which she went to his PCP who prescribed antibiotics and told him it was likely diverticulitis, he took antibiotics for about 2 weeks and the pain improved slightly but he has continued to have discomfort in the left lower quadrant on and off sometimes worsened with certain foods like chicken and meat. About 2 months ago he started to have pain in the hypogastric region which was also on and off and he did not pay much attention. Patient reports all through this his bowel movements were regular and denied any constipation. Since the last 1 week patient was having discomfort in the right lower quadrant but yesterday it was very severe that yet to come to the hospital for further evaluation. He reported having 3-4 episode of loose watery greenish stools in the last 2 days, episode of vomiting on Friday but denied any blood in the vomitus or in the stool. Off note patient also reports that since 2015 up to 2023 he was taking ibuprofen daily twice and stop taking when he had pain in the epigastrium and symptoms of dyspepsia like currently satiety last year and he went to his PCP. Patient denies any other complaint of chest pain or shortness of breath. He denies any fever or chills. Past medical history: Prediabetic, hypertension, dyslipidemia Past surgical history: Left lung lobectomy apparently due to pneumonia in 2011 Social history: Patient is occasional cannabis user oral cannabis, denies smoking and alcohol and any other drug use Home medications: Metformin, metoprolol 50 b.i.d., losartan 100 mg, hydrochlorothiazide 25 mg, atorvastatin 20 mg 11/18 - Patient seen and examined at bedside. Zosyn changed to q.6 hour. IV fluids changed to 0.9 NS with the d5w. 11/19-patient seen and examined in the ICU. Family at bedside. Patient is A&O x3. Requiring 3 L NC supplementation. Sutures dry clean and intact. Drain with serosanguineous discharge. Hypoactive bowel sounds. 11/21 - patient seen and examined. Hypoactive bowel sounds, not passing gas. PT on board. Surgeon discontinued NG. DC Levy. Ordered CT chest abdomen pelvis with IV contrast 11/22-patient seen and examined. Hypoactive bowel sounds this will not passing gas. Patient is ambulatory. Started Clinimix per pharmacy. 11/23-patient seen and examined. Increasing bowel sounds, patient passed flatus. Clear liquid diet started. Clinimix discontinued. 11/24-patient seen and examined. Overnight had a bowel movement. Surgeon started regular diet, cefazolin switched to Unasyn given culture showing Enterococcus along with the coli resistant to cefazolin, sensitive to ampicillin, daptomycin, gentamicin, linezolid, penicillin, vancomycin Objective vital signs Vital Sign Date Time Temp Pulse Resp B/P (MAP) Pulse Ox O2 Delivery O2 Flow Rate FiO2 11/24/24 13:00 99.3 103 18 138/90 (106) 95 99.3 11/24/24 08:00 Room Air* 0 21 Total Intake and Output 11/23/24 11/23/24 11/24/24 15:00 23:00 07:00 Intake Total 50 ml 320 ml 500 ml Output Total 155 ml 265 ml Balance 50 ml 165 ml 235 ml medications Current Medications Medications Dose Ordered Sig/[place] Route Start Time Stop Time Status Last Admin Dose Admin Cefazolin Sodium/ Dextrose 50 ml @ 50 mls/hr Q8H IV 11/18/24 21:00 11/24/24 13:11 50 MLS/HR Metronidazole 100 ml @ 100 mls/hr Q8HR IV 11/18/24 22:00 11/24/24 14:35 100 MLS/HR Pantoprazole Sodium 40 mg DAILY IV 11/19/24 10:00 11/24/24 08:52 40 MG Ondansetron HCl 4 mg Q4HPRN PRN IV 11/18/24 14:30 Hydromorphone HCl 2 mg Q3HPRN PRN IV 11/18/24 19:45 11/21/24 20:18 2 MG Hydromorphone HCl 0.5 mg Q2HPRN PRN IV 11/19/24 08:45 11/23/24 22:38 0.5 MG Enoxaparin Sodium 40 mg DAILY SC 11/20/24 10:00 11/24/24 08:52 40 MG Hydralazine HCl 10 mg Q6HP PRN IV 11/23/24 08:30 Examination Patient lying in bed, in no acute distress General: Obese, afebrile, palor, mucosae are moist Cardiovascular: Regular S1 and S2. No murmurs, gallops or rubs. No JVD elevation. No pedal edema Respiratory: Decreased bilateral air entry, on room air Abdomen: Soft, tender, nondistended, hypoactive bowel sounds, no rebound tenderness, no organomegaly, no masses. Suture dry clean intact, decreasing serosanguineous drainage noted in NICOLLE. Abdominal binder removed Genitourinary: Deferred MSK/skin: Mobilizes 4 limbs. Skin is dry and warm Neurological: No motor, no sensitive deficits, normal speech. Pupils are isocoric and reactive. Psych/Mental Status: A/Ox3 laboratory and microbiology Laboratory Tests 11/24/24 07:44 Test 11/24/24 07:44 Range/Units Serum Glucose 114 H 74-106 mg/dL Microbiology Date/Time Source Procedure Growth Status 11/18/24 22:57 Nose MRSA Screen - Final Complete Labs and/or images reviewed: Labs reviewed by me, Image(s) reviewed by me Problem List/Assessment/Plan Problem List/Assessment/Plan 11/18- patient underwent laparoscopic appendectomy converted to laparotomy and lysis of adhesions colon right hemicolectomy: Distal ileum to transverse colon anastomosis with the removal of fist sized tumor. Numerous Peritoneal implants were seen. The omentum was caked with a tumor. An omentectomy was accomplished and the tumor was submitted for histopathologic examination. The implants were submitted for histopathologic examination. The segment of the right colon, distal ileum, and appendix were submitted for histopathologic examination. Acute intractable abdominal pain Probable metastatic adenocarcinoma-newly diagnosed-status post resection 11/18 infectious/inflammatory enteritis SIRS likely due to above Acute hypoxic respiratory failure postop-resolved - CT abdomen pelvis without contrast shows abnormally dilated appendix measuring about 1.7 cm in diameter with a adjacent fat stranding, concentric wall thickening of ileum, multiple large mesenteric lymph nodes in the RLQ -CT chest/abdomen/pelvis with IV contrast pending -discontinued IV Zosyn q.6 hour starting 11/17, cefazolin IV Q 8 hour, switched to IV Unasyn 11/24. Abdominal culture growing E coli and Enterococcus sensitive to Unasyn -discontinued on 11/23 IV half NS with D5W at 120 cc/hr -surgery on board - IV Protonix - patient NPO with NGT to LIS - advised regarding avoiding NSAIDs ibuprofen -never had a colonoscopy/EGD -hematology/oncology consultation: Dr. Maza we will set up outpatient follow up in her clinic. Microcytic hypochromic anemia likely due to iron-deficiency - retic count normal - ferritin low - iron panel shows low iron, low% saturation, normal TIBC YULI on CKD likely due to be VMN- FENA 0.5, perirenal - continue IV fluids - Moderate electrolytes and kidney function - creatinine downtrending to 1.42 PUD prophylaxis: Protonix Lovenox 40 mg sc daily Diet: Regular diet, discontinued Clinimix PT on board Patient is ambulating Plan discussed with patient, at bedside in which all questions have been answered Goals of care discussed with the the patient for more than 20 minutes, full code status Case discussed with Dr. maradiaga Plan discussed with: Patient Dietary Evaluation Review Recommendations by RD: Dietary education by RD Comments: 1) If patient remains NPO > 7 days, consider EN/TPN to meet at least 75% estimated energy needs 2) Advance to cardiac diet when medically feasible, pending NUTRITIONAL SERVICES DIRECTOR approval 3) Refer to outpatient RD for weight management 4) Follow-up with gastroenterology and oncology 5) Continue to monitor I&O, labs, and skin integrity Expected Outcomes/Goals: 1) patient to receive nutrition support within 7 days of NPO status 2) labs to improve 3) diet to advance 4) f/u in 2-3 days Date of Service: Nov 24, 2024 Billing Provider: ERLINDA MARADIAGA MD Common Visit Codes: [id number] INP/OBS CARE(HIGH) NEDA ESPARZA RESIDENT Nov 24, 2024 15:58 ERLINDA MARADIAGA MD Nov 24, 2024 22:16
[2024-11-24 17:00] VITALS: BP 143/82; PULSE 92; RESP 20; TEMP 98; O2SAT 96
--- NOTE | 2024-11-24 17:01 | MEDREC ---
[facility] Intervention Section I [facility] Intervention: Duplication of therapy (PLEASE CONSIDER D/C FLAGYL SINCE BOTH UNASYN AND FLAGYL COVER FOR ANAEROBE ORGANISMS (DUPLICATE) ) NEIL RESENDIZ PHARMACIST Nov 24, 2024 17:01
[2024-11-24] MEDS: AMPICILLIN & SULBACTAM SODIUM 3 GM in SODIUM CHL 0.9% 100 ML IV SCH (17:37)
[2024-11-24 21:00] VITALS: BP 141/85; PULSE 89; RESP 18; TEMP 97.4; O2SAT 92
[2024-11-25] VITALS (8 sets, daily range): BP systolic 134–153; BP diastolic 78–90; PULSE 82–109; RESP 17–18; TEMP 97.5–98.2; O2SAT 95–97
[2024-11-25 07:22] LABS: Basophils # (auto) 0 10 ^3/uL (0-0.2)
[2024-11-25 07:25] LABS: Basophils % (auto) 0.3 % (0.0-2.0); Eosinophils # (auto) 0.2 10 ^3/uL (0-0.8); Hematocrit 27.3 % (41.0-53.0); Hemoglobin 8.4 g/dL (13.5-17.5); Lymphocytes # (auto) 1.2 10 ^3/uL (0.4-5.4); Lymphocytes % (auto) 14.9 % (10.0-50.0); Mean Corpuscular Hemoglobin 19.5 pg (28.0-32.0); Mean Corpuscular Hgb Conc. 30.7 g/dL (32.0-36.0); Mean Corpuscular Volume 63.6 fL (80.0-100.0); Monocytes # (auto) 0.9 10 ^3/uL (0-1.3); Monocytes % (auto) 10.6 % (0.0-12.0); Neutrophils # (auto) 5.8 10 ^3/uL (1.6-8.6); Neutrophils % (auto) 71.2 % (37.0-80.0); Platelet Count (auto) 293 10^3/uL (140-450); Red Cell Distribution Width 23.9 % (11.8-14.3); White Blood Cell 8.1 10^3/uL (4.4-10.8)
[2024-11-25 07:27] LABS: Chloride 103 mmol/L (98-107); Potassium 3.9 mmol/L (3.5-5.1); Sodium 137 mmol/L (136-145)
[2024-11-25 07:28] LABS: Anion Gap 8 (5-15); Calcium 8.3 mg/dL (8.7-10.4); Carbon Dioxide 26 mmol/L (20-31)
[2024-11-25 07:33] LABS: BUN/Creatinine Ratio 13.2 (10.0-20.0); Blood Urea Nitrogen 10 mg/dL (9-23)
[2024-11-25 07:36] LABS: Glucose 114 mg/dL (74-106)
--- NOTE | 2024-11-25 12:52 | DVHDSRES ---
Discharge Summary Date of Admission Resident Creating Document: NEDA ESPARZA RESIDENT Nov 18, 2024 at 00:39 Date of Discharge: Nov 25, 2024 Labs/Diagnostic Data: Laboratory Results Test 11/25/24 06:13 11/24/24 13:03 11/23/24 04:36 11/22/24 14:51 White Blood Count 8.1 10^3/uL (4.4-10.8) Red Blood Count 4.30 10^6/uL (4.5-5.90) Hemoglobin 8.4 g/dL (13.5-17.5) Hematocrit 27.3 % (41.0-53.0) Mean Corpuscular Volume 63.6 fL (80.0-100.0) Mean Corpuscular Hemoglobin 19.5 pg (28.0-32.0) Mean Corpuscular Hemoglobin Concent 30.7 g/dL (32.0-36.0) Red Cell Distribution Width 23.9 % (11.8-14.3) Platelet Count 293 10^3/uL (140-450) Mean Platelet Volume 8.2 fL (6.9-10.8) Neutrophils (%) (Auto) 71.2 % (37.0-80.0) Lymphocytes (%) (Auto) 14.9 % (10.0-50.0) Monocytes (%) (Auto) 10.6 % (0.0-12.0) Eosinophils (%) (Auto) 3.0 % (0.0-7.0) Basophils (%) (Auto) 0.3 % (0.0-2.0) Neutrophils # (Auto) 5.8 10 ^3/uL (1.6-8.6) Lymphocytes # (Auto) 1.2 10 ^3/uL (0.4-5.4) Monocytes # (Auto) 0.9 10 ^3/uL (0-1.3) Eosinophils # (Auto) 0.2 10 ^3/uL (0-0.8) Basophils # (Auto) 0 10 ^3/uL (0-0.2) Nucleated Red Blood Cells 0.0 % Sodium Level 137 mmol/L (136-145) Potassium Level 3.9 mmol/L (3.5-5.1) Chloride Level 103 mmol/L (98-107) Carbon Dioxide Level 26 mmol/L (20-31) Anion Gap 8 (5-15) Blood Urea Nitrogen 10 mg/dL (9-23) Creatinine 0.76 mg/dL (0.700-1.30) Glomerular Filtration Rate Calc 105 mL/min (>90) BUN/Creatinine Ratio 13.2 (10.0-20.0) Serum Glucose 114 mg/dL (74-106) Calcium Level 8.3 mg/dL (8.7-10.4) POC Glucose 154 mg/dl (70-106) Phosphorus Level 2.3 mg/dL (2.4-5.1) Magnesium Level 1.8 mg/dL (1.6-2.6) Total Bilirubin 0.2 mg/dL (0.2-1.0) Aspartate Amino Transferase (AST) 11 U/L (13-40) Alanine Aminotransferase (ALT) < 9 U/L (7-40) Alkaline Phosphatase 67 U/L (46-116) Total Protein 6.1 g/dL (5.7-8.2) Albumin 3.2 g/dL (3.2-4.8) Triglycerides Level 41 mg/dL (< 150) Test 11/21/24 04:59 11/19/24 15:42 11/19/24 14:40 11/18/24 18:53 Platelet Estimate Adequate Hypochromasia (manual) Slight Anisocytosis (manual) Moderate Microcytosis Slight Tumor Marker Alpha Fetoprotein <1.8 ng/mL (0.0-8.4) CA 125 Antigen 103.0 U/mL (Not Estab.) Lactate Dehydrogenase 200 U/L (120-246) Differential Total Cells Counted 100.0 (100) Neutrophils % (Manual) 82 (37.0-80.0) Band Neutrophils % (Manual) 12 Lymphocytes % (Manual) 2 (10.0-50.0) Monocytes % (Manual) 4 (0-12) Eosinophils % (Manual) 0 (0-7) Basophils % (Manual) 0 (0.0-2.0) Metamyelocytes % (manual) 0 Myelocytes % (Manual) 0 Promyelocytes % (Manual) 0 Blast Cells % (Manual) 0 Reactive Lymphocytes 0 Carcinoembryonic Antigen 3.21 ng/mL (<=5.0) CA 19-9 Antigen 15 U/mL (0-35) Test 11/18/24 06:58 11/17/24 22:20 11/17/24 21:16 Prothrombin Time 12.2 sec (9.3-11.8) Prothrombin Time INR 1.17 (0.9-1.15) Activated Partial Thromboplast Time 31.6 SEC (24.5-34.5) Hemoglobin A1c 5.5 % A1C (<5.7) Lactic Acid Level 0.6 mmol/L (0.4-2.0) Iron Level 11 ug/dL (65-175) Total Iron Binding Capacity 276 ug/dL (250-425) Percent Iron Saturation 4.0 % (20-55) Vitamin B12 Level 1021 pg/mL (211-911) Vitamin D 25-Hydroxy 56.8 ng/mL (30.0-100) Thyroid Stimulating Hormone (TSH) 1.10 uIU/mL (0.55-4.78) Urine Color Light-yellow (Yellow) Urine Clarity Clear (Clear) Urine pH 5.5 (5.0-9.0) Urine Specific [place] 1.018 (1.001-1.035) Urine Protein Trace (Negative) Urine Ketones Negative (Negative) Urine Blood Trace /uL (Negative) Urine Nitrite Negative (Negative) Urine Bilirubin Negative (Negative) Urine Urobilinogen Normal mg/dL (Negative) Urine Leukocyte Esterase Negative /uL (Negative) Urine RBC <1 /hpf (0 - 3) Urine Microscopic WBC 1 /HPF (0-3) Urine Squamous Epithelial Cells None seen /hpf (<5) Urine Bacteria None seen /hpf (None Seen) Urine Hyaline Casts Few /lpf (0 - 2) Urine Creatinine 166.10 mg/dL (30.0-125.0) Urine Protein/Creatinine Ratio 0.38 Urine Sodium 50 mmol/L (40-220) Urine Glucose Normal mg/dL (Normal) Urine Total Protein 63.1 mg/dL (1-14) Urine Opiates Screen Neg (NEGATIVE) Urine Fentanyl Screen Neg (NEGATIVE) Urine Barbiturates Screen Neg (NEGATIVE) Urine Phencyclidine Screen Neg (NEGATIVE) Urine Amphetamines Screen Neg (NEGATIVE) Urine Benzodiazepines Screen Neg (NEGATIVE) Urine Cocaine Screen Neg (NEGATIVE) Urine Cannabinoids Screen Pos (NEGATIVE) Ovalocytes Few Reticulocyte Count (auto) 1.22 % (0.5-1.5) Ferritin 15.7 ng/mL (22-322) C-Reactive Protein High Sensitivity 15.39 mg/dL (<1.0) Lipase 28 U/L (12-53) Other Laboratory Tests 11/25/24 06:13 Brief Hx & Hospital Course: Patient is a 59-year-old male with a past medical history of hypertension, dyslipidemia presented to the ER with a chief complaint of right lower quadrant abdominal pain that started yesterday. He reports that last year in February he had left lower quadrant pain following which she went to his PCP who prescribed antibiotics and told him it was likely diverticulitis, he took antibiotics for about 2 weeks and the pain improved slightly but he has continued to have discomfort in the left lower quadrant on and off sometimes worsened with certain foods like chicken and meat. About 2 months ago he started to have pain in the hypogastric region which was also on and off and he did not pay much attention. Patient reports all through this his bowel movements were regular and denied any constipation. Since the last 1 week patient was having discomfort in the right lower quadrant but yesterday it was very severe that yet to come to the hospital for further evaluation. He reported having 3-4 episode of loose watery greenish stools in the last 2 days, episode of vomiting on Friday but denied any blood in the vomitus or in the stool. Off note patient also reports that since 2015 up to 2023 he was taking ibuprofen daily twice and stop taking when he had pain in the epigastrium and symptoms of dyspepsia like currently satiety last year and he went to his PCP. Patient denies any other complaint of chest pain or shortness of breath. He denies any fever or chills. Past medical history: Prediabetic, hypertension, dyslipidemia Past surgical history: Left lung lobectomy apparently due to pneumonia in 2011 Social history: Patient is occasional cannabis user oral cannabis, denies smoking and alcohol and any other drug use Home medications: Metformin, metoprolol 50 b.i.d., losartan 100 mg, hydrochlorothiazide 25 mg, atorvastatin 20 mg During the hospitalization, 11/18- patient underwent laparoscopic appendectomy converted to laparotomy and lysis of adhesions colon right hemicolectomy: Distal ileum to transverse colon anastomosis with the removal of fist sized tumor. Numerous Peritoneal implants were seen. The omentum was caked with a tumor. An omentectomy was accomplished and the tumor was submitted for histopathologic examination. The implants were submitted for histopathologic examination. The segment of the right colon, distal ileum, and appendix were submitted for histopathologic examination. Prelim pathology report shows metastatic adenocarcinoma. Patient was kept on IV Zosyn later switched to cefazolin IV Q 8 hourly and IV fluids, NPO. Surgeon followed the patient daily basis. Patient started to pass gas and NGT was discontinued, Levy was discontinued. Early ambulation was done. Clear liquid diet was started, patient tolerated well, patient made bowel movement and diet was advanced to soft and then regular.Abdominal culture growing E coli and Enterococcus sensitive to Unasyn, IV antibiotics switched to Unasyn. hematology/oncology consultation: Dr. Maza we will set up outpatient follow up in her clinic. CT chest/abdomen/pelvis completed with IV contrast, showed no hilar or mediastinal adenopathy, no pulmonary nodule or masses.There is some mild pleural thickening posteriorly in the right upper lung field. 11/25-patient is hemodynamically stable, clinically stable, no acute distress, tolerating regular diet, passing gas and BM. Outpatient heme oncology appointment is set on November 30 per patient's . Outpatient surgery follow up recommended. Patient discharged on Augmentin 875 mg b.i.d. for 5 days. Side effects advice. Patient and patient's spouse agreed to discharge plan. Consults/Reason for consult Surgeon consulted Heme oncology consulted Operations or Procedures DATE OF SURGERY: 11/18/2024 PREOPERATIVE DIAGNOSES: * Appendicitis. * Abdominal pain POSTOPERATIVE DIAGNOSES: * Right colon tumor with peritoneal implants. * Omental caking. SURGEON: Fatimah Matthews MD LEARNING SERVICES COORDINATOR: Dr. Pedro. SECOND LEARNING SERVICES COORDINATOR: Floyd Mota NP ANESTHESIA: General endotracheal. ANESTHESIOLOGIST: Dr. Mahoney. PROCEDURES: * Laparoscopy converted to laparotomy. * Lysis of adhesions. * Right hemicolectomy. * Distal ileum to transverse colon anastomosis. DESCRIPTION OF PROCEDURE: Under general endotracheal anesthesia with the patient's abdomen prepped and draped, abdomen was entered through a supraumbilical incision by means of a VisiPort 5-mm trocar. The site was then used for insertion of a 5-mm scope and an additional 5-mm port in the subxiphoid skin was inserted under direct vision. Laparoscopy revealed dense adhesions and the right colon firmly adherent to the lateral posterior peritoneum. The operation was converted to an open operation. A midline laparotomy incision was accomplished. There were adhesions between the bowel wall and sigmoid colon. These were lysed sharply. A segment of the abdominal wall was left attached to the colon in order to accomplish full mobilization and facilitate the incision. Following the accomplishment of the midline incision, the abdomen was visually and manually explored. Cultures and sensitivities were submitted of the fluid encountered. The right colon was densely adherent to the abdominal wall and the posterior peritoneum. It was mobilized by incision along the avascular planes with careful preservation and protection of the duodenum. The right colon was mobilized into the field. It contained a fist-sized tumor. The tissues also contained a loop of small bowel adherent to the tumor. Appendix was in situ. Distal ileum was transected with a stapler in the ascending colon, similarly transected. There were numerous peritoneal implants. The omentum was caked with a tumor. An omentectomy was accomplished and the tumor was submitted for histopathologic examination. The implants were submitted for histopathologic examination. The segment of the right colon, distal ileum, and appendix were submitted for histopathologic examination. The abdomen was then profusely irrigated. Irrigant was aspirated. Hemostasis was meticulously accomplished. The distal ileum was mobilized and brought to opposition to the transverse colon. The bowel was occluded with bowel clamps and a hand-sewn anastomosis [id number] was accomplished between the distal ileum and the transverse colon using 3-0 Prolene for the outer layer and 3-0 Monocryl for the inner layer. The anastomosis being accomplished was inspected for watertight closure, which was accomplished by milking the bowel contents. No evidence of extravasation was encountered. The mesentery was approximated using 2-0 Monocryl sutures. The abdomen was again irrigated. Irrigant was aspirated and two Trip-Beauchamp drains were placed into the peritoneal cavity and exteriorized with separate stable incisions and secured with 2-0 nylon sutures. Subsequently, following an accurate needle and sponge counts reported by the nurses x2. The abdomen was closed using #1 double-stranded PDS suture and Metallic skin vinny. The patient remained hemodynamically stable throughout the procedure and left the operating room extubated with stable vital signs with a plan to transfer the patient to direct observation unit. The patient's was thoroughly informed in person of the findings. I explained to the that most likely we are dealing with metastatic cancer, awaiting the confirmation by the pathologist. Fatimah Matthews MD TID: [id number] RECEIPT: [id number] DICTATED BY:FATIMAH MATTHEWS MD DICTATED DATE/TIME:11/18/24 1248 ELECTRONICALLY SIGNED BY:FATIMAH MATTHEWS MD 11/19/24 0722 ELECTRONICALLY CO-SIGNED BY: ORDERING PHYSICIAN: NEDA ESPARZA RESIDENT PROCEDURE(s): CHAPIV - CHST AB PEL W WO CON-IV ONLY REASON: ?metastasis Prelim dx met adeno CA. ORDER NUMBER(s): [id number], ACCESSION NUMBER(s): [id number] ADDENDUM ADDENDUM # [address] CHEST ABDOMEN AND PELVIS There are no abnormal pulmonary masses or nodules. No mediastinal or hilar adenopathy. CT ABDOMEN PELVIS: There are no enhancing lesions in the liver or spleen. There is a 2 cm cyst upper pole right kidney. No periaortic or pericaval adenopathy. Postoperative changes of the right colon. No findings to suggest bowel obstruction. No abnormal fluid collections to suggest abscess. Percutaneous drainage tube is noted entering the anterior abdomen on the right and traversing into the pelvis extending into the lower pelvis across the midline. There are no abnormal fluid collections around the tube. IMPRESSION: 1. IV contrast was also given. 2. No hilar or mediastinal adenopathy. 3. No pulmonary nodules or masses. There is some mild pleural thickening posteriorly in the right upper lung field. 4. No findings of abnormal fluid collections in the abdomen and pelvis. No findings to suggest abscess. 5. No findings of bowel obstruction. 6. Percutaneous drainage tube in place with no abnormal fluid collections around the tube. HS:Y ORIGINAL REPORT History: metastasis Prelim dx met adeno CA. Comparison Study: None TECHNIQUE: Multidetector CT of the chest, abdomen and pelvis was performed from lower neck to pubic symphysis without the use of intravenous contrast. Axial, coronal and sagittal multiplanar reformats were performed by the technologist on a separate workstation. Radiation Dose Information: CT Dose: CTDI volume is 18.36 mGy. Dose-length product is 2554.28 mGy*cm FINDINGS: Lower neck: Normal thyroid. Lungs: Bibasilar areas of atelectasis or infiltrate posterior costophrenic angles left worse than right. No suspicious pulmonary nodules or pulmonary masses. Heart/Vascular Structures: Normal heart size. Lymph Nodes: No adenopathy. Pleura: Pleural thickening noted posteriorly in the right upper lung field. Liver: The liver is normal in size. Non-contrast appearance of liver. Small amount of ascites around the liver. Gallbladder and Biliary Tree: Unremarkable. Spleen: Unremarkable. Pancreas: Unremarkable. Adrenal Glands: Unremarkable. Kidneys: 8-9 mm calculus upper pole right kidney no hydronephrosis Bladder: Unremarkable. Bowel: No bowel wall thickening or dilatation. Percutaneous drainage 2 from the right anterior abdominal wall entering the peritoneal cavity coursing into the pelvis . The appendix is not visualized; and May have been surgically removed. Peritoneum: Small amount of ascites around the liver. Closure vinny in the anterior abdominal wall most likely from previous surgery. Lymphadenopathy: No enlarged lymph nodes. Vasculature: The visualized abdominal aorta is normal in size and caliber. Evaluation of the vascular structures is limited due to lack of intravenous contrast. Pelvic Organs: Unremarkable. Musculoskeletal: No acute osseous abnormality. Soft tissues: Unremarkable. IMPRESSION: 1. Postoperative changes noted in the anterior abdominal wall 2. avityPercutaneous drainage tube entering the peritoneal cavity from the anterior abdominal wall on the right. Coarsening to the right lateral abdominal wall and inferiorly posterior to the bladder. 3. Pleural thickening posteriorly in the right upper lung field. No pulmonary nodules or masses. No mediastinal adenopathy. Hilar adenopathy can not be excluded without IV contrast. 4. Small amount of ascites around the liver. All CT scans at this medical facility are performed using dose modulation techniques as appropriate to a performed exam including the following: Automated exposure control was utilized; adjustment of the MA and/or KV according to patient size; and use of iterative reconstruction technique. HS:Y ATED BY: RA GOODMAN Jr., DO DICTATED DATE/TIME: [id number] SIGNED BY: RA GOODMAN Jr., DO SIGNED DATE/TIME: 11/21/241757 CC: History: metastasis Prelim dx met adeno CA. Comparison Study: None Condition at Discharge: Stable Final Diagnosis/Problems List Acute intractable abdominal pain Probable metastatic adenocarcinoma-newly diagnosed-status post right hemicolectomy, laparotomy, anastomosis 6/5 infectious/inflammatory enteritis SIRS likely due to above Acute hypoxic respiratory failure postop-resolved Microcytic hypochromic anemia likely due to iron-deficiency YULI likely vasomotor mediated Discharge Disposition: Home Discharge Instruct/Medications Diet: Cardiac 2g Na,low cholest Activity: Light activity Follow Up/Referral: Follow up with surgeon as outpatient within 7 days Follow up with Dr. Maza oncologist as outpatient within 7-14 days Follow up with PCP within 7 days Medications: Tablet Augmentin 875 twice daily for 5 days Resume home medications Discharge Statement: "Patient was advised to return to the ER or call 911 if any headaches, dizziness, shortness of breath, chest pain, abdominal pain, bleeding, fevers, or worsening of medical condition. Patient was counseled about treatment plan, medications, possible side effects, patientverbalized understanding. All questions were answered to the best of my ability. This discharge took greater then 30 minutes in planning, reviewing documentation, counseling the patient, and discussing with other team members." ASSESSMENT ASSESSMENT Assessment Probable metastatic adenocarcinoma-newly diagnosed-status post resection 6/5 infectious/inflammatory enteritis Microcytic hypochromic anemia likely due to iron-deficiency Date of Service: Nov 25, 2024 Billing Provider: ERLINDA SALDIVAR MD Common Visit Codes: 63045-GPY/OBS DISCH DAY >30min NEDA ESPARZA RESIDENT Nov 25, 2024 12:52 ERLINDA SALDIVAR MD Nov 25, 2024 21:01
[2024-11-25] MEDS ORDERED: AUG875T PO (12:59)
[2024-11-25] MEDS ORDERED: PANT40T PO (12:59)
--- NOTE | 2024-11-25 13:32 | DVHPN2 ---
Subjective Date Seen: Nov 25, 2024 Post op day Post op day: 5 Patient reports: No new complaints Nursing reports: No new complaints General: Normal HNT: Normal Cardiovascular: Normal Respiratory: Normal Gastrointestinal: Abdominal Pain Genitourinary: Normal Musculoskeletal: Normal Neurological: Normal Objective Vitals Vital Sign Date Time Temp Pulse Resp B/P (MAP) Pulse Ox O2 Delivery O2 Flow Rate FiO2 11/25/24 09:00 98.2 93 18 143/81 (101) 96 98.2 11/25/24 08:00 Room Air* 0 21 Total Intake and Output 11/24/24 11/24/24 11/25/24 15:00 23:00 07:00 Intake Total 200 ml 1620 ml 1390 ml Output Total 90 ml 67 ml Balance 200 ml 1530 ml 1323 ml Medications Current Medications Medications Dose Ordered Sig/[place] Route Start Time Stop Time Status Last Admin Dose Admin Pantoprazole Sodium 40 mg DAILY IV 11/19/24 10:00 11/25/24 08:42 40 MG Ondansetron HCl 4 mg Q4HPRN PRN IV 11/18/24 14:30 Hydromorphone HCl 2 mg Q3HPRN PRN IV 11/18/24 19:45 11/21/24 20:18 2 MG Hydromorphone HCl 0.5 mg Q2HPRN PRN IV 11/19/24 08:45 11/24/24 20:51 0.5 MG Enoxaparin Sodium 40 mg DAILY SC 11/20/24 10:00 11/25/24 08:42 40 MG Hydralazine HCl 10 mg Q6HP PRN IV 11/23/24 08:30 Ampicillin Sodium/ Sulbactam Sodium 3 gm/Sodium Chloride 100 ml @ 100 mls/hr Q6H IV 11/24/24 16:00 11/25/24 08:42 100 MLS/HR General: Normal, Obese Head/Eyes: Normal ENT: Normal Neck: Normal Lungs: Normal Cardiovascular: Normal Abdominal: Soft, Other (NICOLLE drain ) Musculoskeletal: Normal Extremities: Normal Skin: Normal Neurological: Normal Labs and Microbiology Laboratory Tests 11/25/24 06:13 Test 11/25/24 06:13 Range/Units Serum Glucose 114 H 74-106 mg/dL Ass/Plan Labs and/or images reviewed: Labs reviewed by me, Image(s) reviewed by me Problem List 6/5- patient underwent laparoscopic appendectomy converted to laparotomy and lysis of adhesions colon right hemicolectomy: Distal ileum to transverse colon anastomosis with the removal of fist sized tumor. Numerous Peritoneal implants were seen. The omentum was caked with a tumor. An omentectomy was accomplished and the tumor was submitted for histopathologic examination. The implants were submitted for histopathologic examination. The segment of the right colon, distal ileum, and appendix were submitted for histopathologic examination. Acute intractable abdominal pain Probable metastatic adenocarcinoma-newly diagnosed-status post resection 11/18 infectious/inflammatory enteritis SIRS likely due to above Acute hypoxic respiratory failure postop-resolved - CT abdomen pelvis without contrast shows abnormally dilated appendix measuring about 1.7 cm in diameter with a adjacent fat stranding, concentric wall thickening of ileum, multiple large mesenteric lymph nodes in the RLQ -CT chest/abdomen/pelvis with IV contrast pending -discontinued IV Zosyn q.6 hour starting 11/17, cefazolin IV Q 8 hour, switched to IV Unasyn 11/24. Abdominal culture growing E coli and Enterococcus sensitive to Unasyn -discontinued on 11/23 IV half NS with D5W at 120 cc/hr -surgery on board - IV Protonix - patient NPO with NGT to LIS - advised regarding avoiding NSAIDs ibuprofen -never had a colonoscopy/EGD -hematology/oncology consultation: Dr. Maza we will set up outpatient follow up in her clinic. Microcytic hypochromic anemia likely due to iron-deficiency - retic count normal - ferritin low - iron panel shows low iron, low% saturation, normal TIBC YULI on CKD likely due to be VMN- FENA 0.5, perirenal - continue IV fluids - Moderate electrolytes and kidney function - creatinine downtrending to 1.42 PUD prophylaxis: Protonix Lovenox 40 mg sc daily Diet: Regular diet, discontinued Clinimix PT on board Patient is ambulating Plan discussed with patient, at bedside in which all questions have been answered Goals of care discussed with the the patient for more than 20 minutes, full code status Case discussed with Dr. maradiaga Assessment/Plan s/p colon resection , appendectomy wound clean dry and intact abdomen soft, non distended, appropriately tender labs reviewed NICOLLE Drain serous sanguinous minimal fluid Plan: NPO NGT to LCS patient to ambulate 11/20/2024 s/p colon resection , appendectomy wound vac over wound minimal drainage , no erythema seen abdomen soft , non distended, appropriately tender Plan: NGT to LCS NPO patient to ambulate 11/25/24 tolerating diet, BM passing gas NICOLLE drain seropus fluid Plan: ok to discharge per surgery point of view patient to follow up in surgery clinic in two weeks ok to shower Prognosis: Good Plan discussed with patient, Dr. Matthews Visit Coding Surgery Date of Service if different f: Nov 25, 2024 Billing Provider: FATIMAH MATTHEWS MD Surgery Visit Codes: [id number] INP/OBS CARE(HIGH) CLEMENTE NGUYEN [employer] Nov 25, 2024 13:32
== END 2024-11-25 17:59 | disposition home or self-care (01) | DRG 329 ==
LOC: ER 20:46 → OVERFLOW 11-18 00:39 → TELE-WESTW 11-18 04:53 → ICU WEST 11-18 15:20 → DOU IN ICU 11-18 21:47 → TELE-WESTW 11-19 17:33 → WEST WING 11-22 13:45
PROVIDERS: ADMIT Internal Medicine Geriatric Medicine; ATTEND Emergency Medicine
PROC: 0D1B0ZL Bypass Ileum to Transverse Colon, Open Approach (ICD-10-PCS; 2024-11-18)
PROC: 0DNE0ZZ Release Large Intestine, Open Approach (ICD-10-PCS; 2024-11-18)
PROC: 0DTF0ZZ Resection of Right Large Intestine, Open Approach (ICD-10-PCS; principal; 2024-11-18 11:27)
DX: D49.0 Neoplasm of unspecified behavior of digestive system (principal); J96.01 Acute respiratory failure with hypoxia; N17.0 Acute kidney failure with tubular necrosis; K35.80 Unspecified acute appendicitis; R65.10 Systemic inflammatory response syndrome (SIRS) of non-infectious origin without acute organ dysfunction; K66.0 Peritoneal adhesions (postprocedural) (postinfection); N18.9 Chronic kidney disease, unspecified; D50.9 Iron deficiency anemia, unspecified; K52.9 Noninfective gastroenteritis and colitis, unspecified; I12.9 Hypertensive chronic kidney disease with stage 1 through stage 4 chronic kidney disease, or unspecified chronic kidney disease; E11.22 Type 2 diabetes mellitus with diabetic chronic kidney disease; B96.20 Unspecified Escherichia coli [E. coli] as the cause of diseases classified elsewhere; Z53.31 Laparoscopic surgical procedure converted to open procedure; Z79.899 Other long term (current) drug therapy
CPT/HCPCS: 36415; 71045; 71275; 74018; 74176; 74178; 80048; 80053; 80307; 81001; 82105; 82306; 82378; 82570; 82607; 82728; 82962; 83036; 83540; 83550; 83605; 83615; 83690; 83735; 84100; 84156; 84300; 84443; 84478; 85007; 85025; 85027; 85045; 85610; 85730; 86141; 86301; 86304; 86850; 86900; 86901; 87070; 87075; 87077; 87081; 87186; 87205; 93005; 96365; 96375; 97116; 97163; 97530; 99291; G0378; J1100; J1815; J1885; J2405; J2470; J2543; J3480; J3490